=== PATIENT | female | born 1985 | race Caucasian/White ===

== ENCOUNTER → 2020-09-01 10:37 | Outpatient (BNVA) | payer OTHER, SELFPAY | PROVIDERS: PCP Internal Medicine; Referring Provider Internal Medicine; Visit Provider Internal Medicine Gastroenterology | DX: Z76.89 Persons encountering health services in other specified circumstances (principal) ==

== ENCOUNTER 2021-05-27 11:57 | Outpatient (REF) | payer OTHER, SELFPAY ==
--- NOTE | ~2021-05-27 | MM_ITS ---
EXAMINATION: MM SCREENING DIGITAL BREAST TOMOSYNTHESIS, BILATERAL CLINICAL INFORMATION: Screening. Asymptomatic. Family history premenopausal breast cancer, mother. The lifetime risk of breast cancer based on the Tyrer-Cuzick Model is 22%. COMPARISON: Mammography: 04/02/2020, 03/12/2019 TECHNIQUE: Digital breast tomosynthesis is performed in both the craniocaudal and mediolateral oblique views along with computer-aided detection (CAD). Synthesized 2D images are generated from the tomosynthesis. Additional left MLO and exaggerated right CC views are provided. FINDINGS: There are scattered areas of fibroglandular density (ACR BI-RADS breast composition Category b). There are no significant masses, abnormal calcifications, or other abnormalities. There are summation artifact upper left breast on synthesized MLO view. There are no architectural changes on tomography. The axilla and skin contours are unremarkable. MM/MM tomosynthesis screening BI IMPRESSION: No mammographic evidence of malignancy. ASSESSMENT: BI-RADS 2: Benign RECOMMENDATION: 1. Routine annual mammography screening. 2. The lifetime risk of breast cancer based on the Tyrer-Cuzick Model is 22%. Additional annual adjunct screening with breast MRI may be of benefit in women with a risk score of 20% or greater. This patient's information was entered into a reminder system with a target due date for their next mammogram.
== END 2021-05-27 11:58 | disposition home or self-care (01) ==
LOC: HO.MAMMO 11:57
PROVIDERS: PCP Internal Medicine; Visit Provider Internal Medicine
DX: Z12.31 Encounter for screening mammogram for malignant neoplasm of breast (principal)
CPT/HCPCS: 77063; 77067

== ENCOUNTER → 2021-07-20 16:14 | Outpatient (REF) | payer OTHER, SELFPAY | LOC: HO.SL 16:14 | PROVIDERS: PCP Internal Medicine; Visit Provider Internal Medicine | DX: G47.10 Hypersomnia, unspecified (principal) | CPT/HCPCS: 95806 ==

== ENCOUNTER 2021-08-04 12:00 | Outpatient (RCR) | payer OTHER, SELFPAY ==
--- NOTE | 2021-07-21 16:37 | MHC.PT.EP ---
[facility] [place] Office [place] Office [place] Office [address] Kevin Griffin [address] [phone] F: [phone] F: [phone] F: [phone] F: [phone] Physical Therapy Plan of Care Date of Evaluation: Date of Surgery: n/a Diagnosis: Pain in L shoulder Assessment: Patient is a 36 year old female presenting to PT with complaints of pain in her L shoulder. Pt reports onset of pain began March 2021 due to falling on her L elbow at work. She presents today with impairments in pain, shoulder ROM, strength, numbness and tingling, cervical ROM, and posture. Pt's current occupation is none, with baseline physical activities including reaching, lifting, ADLs. 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 Clinical presentation today is most consistent with signs and sx associated with L shoulder pain s/p fall with some numbness and tingling down her arm indicating possible cervical involvement as well and pt will benefit from skilled PT to address the following problems and impairments noted upon evaluation: pain, shoulder ROM, strength, numbness and tingling, cervical ROM, and posture. These problems limit the patient with the following functional activities: reaching, lifting, ADLs. The prescribed treatment plan of care is medically necessary. Co-morbidities of none were identified and taken into considerations of plan of care. Pt was educated on HEP, role of PT, prognosis, POC. Frequency and Duration: The patient will be seen 2x week x 4 weeks Short Term Goals: Pt will demonstrate pain <5/10 in 2 weeks for improved QOL. Pt will demonstrate proximalization of sx in 2 weeks. Pt will demonstrate improved shoulder ROM to equal B in 2 weeks. Pt will demonstrate min to no pain with cervical AROM in available range in 2 weeks. Pt will demonstrate improved postural awareness by sitting with biomechanically correct posture without cues throughout session to improve overall postural function in 2 weeks. 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 Pt will demonstrate ability to complete all reaching and lifting ADLs with min to no pain in 4 weeks to allow return to PLOF. Pt will be independent in HEP for detention management of pain and sx in 4 weeks. Treatment Plan: Modalities to reduce pain, spasms and effusion. Manual therapy to restore motion and function. Therapeutic exercise to improve strength and flexibility. Neuromuscular re-education for posture and balance. Therapeutic activities to return to functional activities of daily living. Electronically signed by: Norma Pan, PT, DPT, ATC Please sign and return to therapist. Thank you for your referral.
--- NOTE | 2021-08-09 10:25 | MHC.PT.DC ---
[facility] [place] Office [place] Office [place] Office [address] [phone] F: [phone] F: [phone] F: [phone] F: [phone] Physical Therapy Discharge Report Diagnosis: Pain in L shoulder Date of Surgery: n/a Date of Evaluation: 07/21/21 Date of Discharge: 08/09/21 Treatments to Date: 2 Cancellations to Date: 1 No Shows to Date: 3 Discharge Status: Visit Non-compliance Discharge Summary: Pt has failed to comply with [facility] attendance policy and no showed 3 appointments since eval. Electronically signed by: Norma Pan, PT, DPT, ATC Please sign and return to therapist. Thank you for your referral.
== END 2021-08-09 10:25 | disposition home or self-care (01) ==
LOC: HO.PT 12:00
PROVIDERS: PCP Internal Medicine; Visit Provider Internal Medicine
DX: M25.512 Pain in left shoulder (principal)
CPT/HCPCS: 97110; 97161

== ENCOUNTER 2021-09-04 08:24 | Outpatient (REF) | payer OTHER, SELFPAY ==
--- NOTE | ~2021-09-04 | XR_ITS ---
EXAMINATION: XR shoulder RT min 2V, XR shoulder LT min 2V CLINICAL INFORMATION: Pain in right shoulder. COMPARISON: Left shoulder dated 03/23/20. TECHNIQUE: Right shoulder 4 views. Left shoulder 4 views. FINDINGS: RIGHT SHOULDER: No bony abnormalities evident. Alignment of glenohumeral and acromioclavicular joints is normal. LEFT SHOULDER: There is mild sclerosis over the greater tuberosity with a small subchondral lucency. The appearance suggests tendinosis. No other bony abnormality. Alignment of glenohumeral and acromioclavicular joints is normal. XR/XR shoulder LT min 2V IMPRESSION: Mild changes at the greater tuberosity of the proximal left humerus consistent with tendinosis. Unremarkable right shoulder.
--- NOTE | ~2021-09-04 | XR_ITS ---
EXAMINATION: XR shoulder RT min 2V, XR shoulder LT min 2V CLINICAL INFORMATION: Pain in right shoulder. COMPARISON: Left shoulder dated 03/23/20. TECHNIQUE: Right shoulder 4 views. Left shoulder 4 views. FINDINGS: RIGHT SHOULDER: No bony abnormalities evident. Alignment of glenohumeral and acromioclavicular joints is normal. LEFT SHOULDER: There is mild sclerosis over the greater tuberosity with a small subchondral lucency. The appearance suggests tendinosis. No other bony abnormality. Alignment of glenohumeral and acromioclavicular joints is normal. XR/XR shoulder RT min 2V IMPRESSION: Mild changes at the greater tuberosity of the proximal left humerus consistent with tendinosis. Unremarkable right shoulder.
[2021-09-04 09:06] LABS: MANUAL DIFF FLAG NO
[2021-09-04 09:24] LABS: Basophils Percent Auto 0.4 % (0-2); Eosinophils Absolute Auto 0.1 X10*3/uL (0.0-0.4); Eosinophils Percent Auto 1.8 % (0-4); Hemoglobin 13.4 g/dl (12.0-16.0); Imm Gran Abs Auto 0.01 X10*3/uL (0.00-0.03); Imm Gran Pct Auto 0.2 % (0.0-0.4); Lymphocytes Absolute Auto 2.6 X10*3/uL (1.2-4.9); Lymphocytes Percent Auto 46.7 % (20-40); Mean Corpuscular HGB Conc 32.7 g/dl (31.0-35.0); Mean Corpuscular Hemoglobin 26.9 pg (27.0-33.0); Mean Corpuscular Volume 82.3 fL (80.0-98.0); Mean Platelet Volume 9.2 fL (9.4-12.3); Monocytes Absolute Auto 0.5 X10*3/uL (0.1-1.2); Monocytes Percent Auto 9.5 % (2-11); Neutrophils Absolute Auto 2.3 x10*3/uL (2.0-8.3); Neutrophils Percent Auto 41.4 % (45-73); Platelet Count 383 X10*3/uL (160-400); Red Blood Count 4.98 X10*6/uL (4.20-5.50); Red Cell Distribution Width 12.9 % (11.0-16.0); White Blood Count 5.6 X10*3/uL (4.8-10.8)
[2021-09-04 09:29] LABS: Estimated Average Glucose 105 mg/dL; Hemoglobin A1c % 5.3 %
[2021-09-04 09:56] LABS: Alanine Aminotransferase 27 U/L (0-31); Alkaline Phosphatase 92 U/L (39-117); Anion Gap 11 (12-20); Aspartate Amino Transferase 21 U/L (5-31); Bilirubin Total 0.4 mg/dL (0.0-1.0); Blood Urea Nitrogen 12 mg/dL (9-16); Calcium 9.3 mg/dL (8.4-10.2); Carbon Dioxide 23 mmol/L (22-29); Chloride 108 mmol/L (96-108); Cholesterol 140 mg/dL; Estimated Glomerular Filt Rate > 60; Glucose Random 98 mg/dL (60-115); HDL Cholesterol 37 mg/dL; LDL Cholesterol Calculated 86 mg/dl; Potassium 4.2 mmol/L (3.3-5.1); Sodium 138 mmol/L (135-145); Total Protein 7.4 g/dL (6.5-8.0); Triglycerides 87 mg/dL
[2021-09-04 10:19] LABS: Free T4 (Free Thyroxine) 0.98 ng/dL (0.71-1.85); Thyroid Stimulating Hormone 1.62 uIU/mL (0.32-4.0); Vitamin D 25-OH Total 20.8 ng/mL (>30)
[2021-09-06 03:46] LABS: Folate 12.3 ng/mL (> or = 4.0); Vitamin B12 326 pg/mL (200-900)
== END 2021-09-04 08:25 | disposition home or self-care (01) ==
LOC: HO.XRAY 08:24
PROVIDERS: PCP Internal Medicine; Visit Provider Internal Medicine
DX: M25.511 Pain in right shoulder (principal); M25.512 Pain in left shoulder; E66.9 Obesity, unspecified; E78.00 Pure hypercholesterolemia, unspecified
CPT/HCPCS: 36415; 73030; 80053; 80061; 82306; 82607; 82746; 83036; 84439; 84443; 85025

== ENCOUNTER 2021-10-06 13:32 | Outpatient (REF) | payer OTHER, SELFPAY ==
--- NOTE | 2021-10-07 13:02 | MHC.AU.AEV ---
Adult Audiological Evaluation Date of Visit: 10/06/21 Reason for Appointment: Patient reports that she has been experiencing significant difficulty hearing at home. Her partner reports that he frequently has to repeat himself when he talks to her. She also experiences intermittent tinnitus. 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: No Medical History: Medical History: Leukemia, Migraines, Hysterectomy in 2017, Appendectomy in 2009, PE tubes in childhood Otoscopy: Right Ear: Unremarkable Left Ear: Unremarkable Tympanometry: Tympanometry performed due to: To assess integrity of the middle ear system Right Ear: Normal Middle Ear System (Type A) Left Ear: Normal Middle Ear System (Type A) Acoustic Reflexes: Screening Ipsilateral Reflex Probe Right Ear: Screening Ipsilateral Reflex Present at 1000 Hz Probe Left Ear: Screening Ipsilateral Reflex Present at 1000 Hz Otoacoustic Emissions Frequency Range Used: 1.6-8 kHz Right Ear Results: Present Emissions Analysis: Present emissions suggest normal cochlear function- Rules out peripheral hearing loss greater than a mild degree Left Ear Results: Present Emissions Analysis: Present emissions suggest normal cochlear function- Rules out peripheral hearing loss greater than a mild degree Hearing Evaluation: Transducer(s) Used: Insert Earphones, Circumaural Headphones Method: Conventional Audiometry Stimuli Used: Pure Tones Description of Hearing: Unable to obtain reliable responses from patient. Responses averaged in the 90-100 dBHL range, which conflicts with objective test results and speech audiometry. Speech Recognition Threshold (SRT): Method Used: Recorded Lists Stimuli Used: Spondee Words Results: Unable to obtain reliable responses from patient. Responses averaged in the 60-70 dBHL range, which conflicts with pure tone responses and objective test results. Word Discrimination: Method: Recorded Lists Word Lists Used: W-22 Results: Unable to obtain reliable responses from patient. Interpretation of Results: Otoacoustic emissions were present and robust, which indicates normal cochlear function. Tympanometry shows normal middle ear function bilaterally. Ipsilateral acoustic reflexes were present at 1000 Hz bilaterally. Otoscopy was unremarkable, revealing clear canals and in-tact tympanic membranes. Collectively, these objective measures rule out peripheral hearing loss greater than a mild degree and indicate that the patient's hearing falls somewhere within the normal hearing range to, at most, the mild hearing loss range. Patient's responses to pure tone and speech audiometry were inconsistent and conflicting. Pure tone responses were averaging in the 90-100 dBHL range, while SRTs were in the 60-70 dBHL range. It was verified throughout the visit that the patient understood the directions. Additionally, at the beginning of the appointment, patient was able to have a conversation about the reasons for her visit at a normal conversational volume and without visual cues such as lip reading (face masks in use). This would not have been possible if her hearing was in the 90-100 dBHL (profound hearing loss) range. Recommendations: It may be beneficial for the PCP to have a discussion with the patient about today's visit. If the patient strongly feels she is having hearing difficulty, despite having normal to near-normal peripheral hearing, it is possible that other non-otological factors could be making it difficult to listen to and retain auditory information efficiently. If present, these factors should be explored with her PCP. Diagnosis: Primary Diagnosis: H93.293 Abnormal Auditory Perception Signature: Provider: Nathanael Velazquez, CCC-A
== END 2021-10-06 13:33 | disposition home or self-care (01) ==
LOC: HO.SH 13:32
PROVIDERS: Visit Provider Internal Medicine
DX: H93.293 Other abnormal auditory perceptions, bilateral (principal)
CPT/HCPCS: 92567; 92587

== ENCOUNTER 2022-05-18 14:58 | Outpatient (REF) | payer OTHER, SELFPAY ==
[2022-05-18 15:18] LABS: MANUAL DIFF FLAG NO
[2022-05-18 15:34] LABS: Basophils Absolute Auto 0.1 X10*3/uL (0.0-0.2); Eosinophils Absolute Auto 0.5 X10*3/uL (0.0-0.4); Eosinophils Percent Auto 6.9 % (0-4); Hematocrit 42.8 % (37.0-47.0); Hemoglobin 13.9 g/dl (12.0-16.0); Imm Gran Abs Auto 0.02 X10*3/uL (0.00-0.03); Imm Gran Pct Auto 0.3 % (0.0-0.4); Lymphocytes Absolute Auto 3.4 X10*3/uL (1.2-4.9); Lymphocytes Percent Auto 48.1 % (20-40); Mean Corpuscular HGB Conc 32.5 g/dl (31.0-35.0); Mean Corpuscular Hemoglobin 26.4 pg (27.0-33.0); Mean Corpuscular Volume 81.2 fL (80.0-98.0); Mean Platelet Volume 9.3 fL (9.4-12.3); Monocytes Absolute Auto 0.6 X10*3/uL (0.1-1.2); Neutrophils Absolute Auto 2.5 x10*3/uL (2.0-8.3); Neutrophils Percent Auto 35.7 % (45-73); Platelet Count 485 X10*3/uL (160-400); Red Blood Count 5.27 X10*6/uL (4.20-5.50); Red Cell Distribution Width 13.3 % (11.0-16.0)
== END 2022-05-18 14:59 | disposition home or self-care (01) ==
LOC: HO.LAB 14:58
PROVIDERS: PCP Internal Medicine; Visit Provider Internal Medicine Pulmonary Disease
DX: J45.20 Mild intermittent asthma, uncomplicated (principal); Z91.09 Other allergy status, other than to drugs and biological substances
CPT/HCPCS: 36415; 82785; 85025; 86003; 99202

== ENCOUNTER 2022-06-14 14:04 | Outpatient (REF) | payer OTHER, SELFPAY ==
--- NOTE | 2022-06-14 16:16 | PFT_ITS ---
FLOWS: FEV1 76% of predicted at 2.77 L. FVC 83% of predicted at 3.60 L. FEV1 to FVC ratio of 0.77. No bronchodilator response except in small to medium airways. LUNG VOLUMES: Total lung capacity 87% of predicted at 5.08 L. Residual volume 88% of predicted at 1.56 L. Slow vital capacity 86% of predicted at 3.51 L. Expiratory reserve volume 28% of predicted at 0.42 L. Diffusion capacity is normal. IMPRESSION: No obstructive or restrictive ventilatory defect. No bronchodilator response except in small to medium airways. Decreased expiratory reserve volume suggests extrathoracic restriction, likely secondary to abdominal obesity. Evaristo Coronel MD AP/MODL / [id number]
== END 2022-06-14 14:05 | disposition home or self-care (01) ==
LOC: HO.RESP 14:04
PROVIDERS: PCP Internal Medicine; Visit Provider Internal Medicine Pulmonary Disease
DX: J45.20 Mild intermittent asthma, uncomplicated (principal)
CPT/HCPCS: 94060; 94727; 94729

== ENCOUNTER → 2022-06-30 14:18 | Outpatient (BNVA) | payer OTHER, SELFPAY | PROVIDERS: PCP Internal Medicine; Visit Provider Internal Medicine Pulmonary Disease | DX: J45.20 Mild intermittent asthma, uncomplicated (principal); Z91.09 Other allergy status, other than to drugs and biological substances | CPT/HCPCS: 99212 ==

== ENCOUNTER 2022-07-21 11:57 | Outpatient (REF) | payer OTHER, SELFPAY | END 2022-07-21 11:58 | disposition home or self-care (01) | LOC: HO.MDS 11:57 | PROVIDERS: PCP Internal Medicine; Visit Provider Internal Medicine Pulmonary Disease | DX: J45.50 Severe persistent asthma, uncomplicated (principal) | CPT/HCPCS: 96372; J2357 ==

== ENCOUNTER 2022-08-04 08:15 | Outpatient (REF) | payer OTHER, SELFPAY | END 2022-08-04 08:16 | disposition home or self-care (01) | LOC: HO.MDS 08:15 | PROVIDERS: PCP Internal Medicine; Visit Provider Internal Medicine Pulmonary Disease | DX: J45.50 Severe persistent asthma, uncomplicated (principal) | CPT/HCPCS: 96372; J2357 ==

== ENCOUNTER 2022-08-18 13:27 | Outpatient (REF) | payer OTHER, SELFPAY | END 2022-08-18 13:28 | disposition home or self-care (01) | LOC: HO.MDS 13:27 | PROVIDERS: Visit Provider Internal Medicine Pulmonary Disease | DX: J45.50 Severe persistent asthma, uncomplicated (principal) | CPT/HCPCS: 96372; J2357 ==

== ENCOUNTER 2022-09-01 12:52 | Outpatient (REF) | payer OTHER, SELFPAY | END 2022-09-01 12:53 | disposition home or self-care (01) | LOC: HO.MDS 12:52 | PROVIDERS: Visit Provider Internal Medicine Pulmonary Disease | DX: J45.50 Severe persistent asthma, uncomplicated (principal) | CPT/HCPCS: 96372; J2357 ==

== ENCOUNTER 2022-09-13 09:27 | Outpatient (REF) | payer OTHER, SELFPAY ==
[2022-09-13 09:40] LABS: MANUAL DIFF FLAG NO
[2022-09-13 10:22] LABS: Basophils Absolute Auto 0.1 X10*3/uL (0.0-0.2); Basophils Percent Auto 0.9 % (0-2); Eosinophils Absolute Auto 0.2 X10*3/uL (0.0-0.4); Eosinophils Percent Auto 4.3 % (0-4); Hematocrit 45.1 % (37.0-47.0); Hemoglobin 14.3 g/dl (12.0-16.0); Lymphocytes Absolute Auto 1.8 X10*3/uL (1.2-4.9); Lymphocytes Percent Auto 33.1 % (20-40); Mean Corpuscular HGB Conc 31.7 g/dl (31.0-35.0); Mean Corpuscular Hemoglobin 26.7 pg (27.0-33.0); Mean Corpuscular Volume 84.1 fL (80.0-98.0); Mean Platelet Volume 9.4 fL (9.4-12.3); Monocytes Absolute Auto 0.5 X10*3/uL (0.1-1.2); Monocytes Percent Auto 9.9 % (2-11); Neutrophils Absolute Auto 2.8 x10*3/uL (2.0-8.3); Neutrophils Percent Auto 51.8 % (45-73); Platelet Count 485 X10*3/uL (160-400); Red Blood Count 5.36 X10*6/uL (4.20-5.50); White Blood Count 5.4 X10*3/uL (4.8-10.8)
[2022-09-13 10:24] LABS: Appearance Urine Clear; Color Urine Yellow; Glucose Urine UA Negative (Negative); Leukocyte Esterase Urine Negative (Negative); Nitrite Urine Negative (Negative); Urine Blood Negative (Negative); Urine Ketones Negative (Negative); Urine Protein Negative (Neg-Trace)
[2022-09-13 10:26] LABS: Bacteria Urine None Seen (None Seen); Hyaline Casts Urine 0-2 /LPF (0-2); RBC Urine 0-2 /HPF (0-2); Squamous Epithelial Cell Urine 0-2 /HPF (0-2); WBC Urine 0-5 /HPF (0-5)
[2022-09-13 11:32] LABS: Alanine Aminotransferase 31 U/L (0-31); Albumin Level 4.2 g/dL (3.5-5.0); Alkaline Phosphatase 95 U/L (39-117); Anion Gap 12 (12-20); Aspartate Amino Transferase 21 U/L (5-31); Bilirubin Total 0.3 mg/dL (0.0-1.0); Blood Urea Nitrogen 12 mg/dL (9-16); Calcium 9.7 mg/dL (8.4-10.2); Carbon Dioxide 25 mmol/L (22-29); Chloride 107 mmol/L (96-108); Cholesterol 171 mg/dL; Estimated Glomerular Filt Rate > 60; Free T4 (Free Thyroxine) 0.95 ng/dL (0.71-1.85); Glucose Random 97 mg/dL (60-115); HDL Cholesterol 45 mg/dL; LDL Cholesterol Calculated 98 mg/dl; Potassium 4.6 mmol/L (3.3-5.1); Sodium 139 mmol/L (135-145); Thyroid Stimulating Hormone 1.29 uIU/mL (0.32-4.0); Total Protein 7.3 g/dL (6.5-8.0); Triglycerides 144 mg/dL; Vitamin D 25-OH Total 13.4 ng/mL (>30)
[2022-09-13 11:42] LABS: Folate 7.3 ng/mL (> or = 4.0); Vitamin B12 283 pg/mL (200-900)
[2022-09-14 06:37] LABS: Syphilis Screen Nonreactive (Nonreactive)
[2022-09-14 11:57] LABS: HBS Num1 212.96 mIU/mL (0-7.99); HBc Num1 0.11 S/CO (0.00-0.79); HBsAGNum1 0.28 S/CO (0.00-0.99); HIV AB/AG Nonreactive (Nonreactive); HIV Num 1 0.06 S/CO (0.00-0.99); Hepatitis B Core Antibody Nonreactive (Nonreactive); Hepatitis B Surface Antigen Negative (Negative); ~HepC Num1 0.13 S/CO (0.00-0.79); ~Hepatitis B Surface Antibody REACTIVE (Nonreactive); ~Hepatitis C Antibody Nonreactive (Nonreactive)
[2022-09-15 09:49] LABS: Rubeola IgG (Measles) >300.00 AU/mL
[2022-09-15 10:19] LABS: Rubella IgG Antibody 2.82 Index
[2022-09-15 19:09] LABS: Immunoglobulin E 1102 kU/L (<OR=114)
== END 2022-09-13 09:28 | disposition home or self-care (01) ==
LOC: HO.LAB 09:27
PROVIDERS: Internal Medicine Pulmonary Disease; PCP Internal Medicine; Visit Provider Internal Medicine
DX: Z00.00 Encounter for general adult medical examination without abnormal findings (principal); Z11.4 Encounter for screening for human immunodeficiency virus [HIV]; J45.20 Mild intermittent asthma, uncomplicated; D75.839 Thrombocytosis, unspecified; E78.00 Pure hypercholesterolemia, unspecified; R79.89 Other specified abnormal findings of blood chemistry; Z20.2 Contact with and (suspected) exposure to infections with a predominantly sexual mode of transmission
CPT/HCPCS: 36415; 80053; 80061; 81001; 82306; 82607; 82746; 82785; 84439; 84443; 85025; 86704; 86706; 86735; 86762; 86765; 86780; 86787; 86803; 87340; 87389

== ENCOUNTER 2022-09-14 08:24 | Outpatient (REF) | payer OTHER, SELFPAY | END 2022-09-14 08:25 | disposition home or self-care (01) | LOC: HO.MDS 08:24 | PROVIDERS: Visit Provider Internal Medicine Pulmonary Disease | DX: J45.50 Severe persistent asthma, uncomplicated (principal) | CPT/HCPCS: 96372; J2357 ==

== ENCOUNTER 2022-09-29 08:02 | Outpatient (REF) | payer OTHER, SELFPAY | END 2022-09-29 08:03 | disposition home or self-care (01) | LOC: HO.MDS 08:02 | PROVIDERS: Visit Provider Internal Medicine Pulmonary Disease | DX: J45.50 Severe persistent asthma, uncomplicated (principal) | CPT/HCPCS: 96372; J2357 ==

== ENCOUNTER 2022-09-29 08:47 | Outpatient (REF) | payer OTHER, SELFPAY | END 2022-09-29 08:48 | disposition home or self-care (01) | LOC: HO.XRAY 08:47 | PROVIDERS: PCP Internal Medicine; Visit Provider Internal Medicine | DX: Z13.89 Encounter for screening for other disorder (principal) ==

== ENCOUNTER 2022-10-13 10:25 | Outpatient (REF) | payer OTHER, SELFPAY | END 2022-10-13 10:26 | disposition home or self-care (01) | LOC: HO.MDS 10:25 | PROVIDERS: Visit Provider Internal Medicine Pulmonary Disease | DX: J45.50 Severe persistent asthma, uncomplicated (principal) | CPT/HCPCS: 96372; J2357 ==

== ENCOUNTER 2022-10-27 13:24 | Outpatient (REF) | payer OTHER, SELFPAY | END 2022-10-27 13:25 | disposition home or self-care (01) | LOC: HO.MDS 13:24 | PROVIDERS: Visit Provider Internal Medicine Pulmonary Disease | DX: J45.50 Severe persistent asthma, uncomplicated (principal) | CPT/HCPCS: 96372; J2357 ==

== ENCOUNTER 2022-11-10 08:22 | Outpatient (REF) | payer OTHER, SELFPAY ==
--- NOTE | ~2022-11-10 | FL_ITS ---
EXAMINATION: XR GI SERIES CLINICAL INFORMATION: Acid reflux. Dysphagia. COMPARISON: Previous upper GI April 2019. TECHNIQUE: Upper GI was performed using thin and thick barium and effervescent granules. FINDINGS: Esophageal motility is normal. There is mild gastroesophageal reflux. There is slight mucosal irregularity at the distal esophagus, questionable for esophagitis. No mass or stricture. The stomach and duodenum are normal-appearing. No fold thickening, mass, ulcer or stricture is seen. FLUOROSCOPY TIME: 0.6 minutes IMAGES: 25 saved fluoroscopic images. DOSE AREA PRODUCT: 6.6 Gy-cm2. FL/FL upper GI series IMPRESSION: Mild gastroesophageal reflux. Question slight mucosal irregularity at the distal thoracic esophagus/esophagitis.
== END 2022-11-10 08:23 | disposition home or self-care (01) ==
LOC: HO.XRAY 08:22
PROVIDERS: PCP Internal Medicine; Visit Provider Internal Medicine
DX: R13.10 Dysphagia, unspecified (principal)
CPT/HCPCS: 74240

== ENCOUNTER 2022-11-10 09:26 | Outpatient (REF) | payer OTHER, SELFPAY | END 2022-11-10 09:27 | disposition home or self-care (01) | LOC: HO.MDS 09:26 | PROVIDERS: Visit Provider Internal Medicine Pulmonary Disease | DX: J45.50 Severe persistent asthma, uncomplicated (principal) | CPT/HCPCS: 96372; J2357 ==

== ENCOUNTER 2022-11-24 11:44 | Outpatient (REF) | payer OTHER, SELFPAY | END 2022-11-24 11:45 | disposition home or self-care (01) | LOC: HO.MDS 11:44 | PROVIDERS: Visit Provider Internal Medicine Pulmonary Disease | DX: Z53.09 Procedure and treatment not carried out because of other contraindication (principal); J45.50 Severe persistent asthma, uncomplicated | CPT/HCPCS: 96372; J2357 ==

== ENCOUNTER 2022-12-07 13:00 | Outpatient (REF) | payer OTHER, SELFPAY | END 2022-12-07 13:01 | disposition home or self-care (01) | LOC: HO.MDS 13:00 | PROVIDERS: Visit Provider Internal Medicine Pulmonary Disease | DX: J45.50 Severe persistent asthma, uncomplicated (principal) | CPT/HCPCS: 96372; J2357 ==

== ENCOUNTER 2022-12-21 13:26 | Outpatient (REF) | payer OTHER, SELFPAY | END 2022-12-21 13:27 | disposition home or self-care (01) | LOC: HO.MDS 13:26 | PROVIDERS: Visit Provider Internal Medicine Pulmonary Disease | DX: J45.50 Severe persistent asthma, uncomplicated (principal) | CPT/HCPCS: 96372; J2357 ==

== ENCOUNTER 2023-01-04 07:34 | Outpatient (REF) | payer OTHER, SELFPAY | END 2023-01-04 07:35 | disposition home or self-care (01) | LOC: HO.MDS 07:34 | PROVIDERS: Visit Provider Internal Medicine Pulmonary Disease | DX: J45.50 Severe persistent asthma, uncomplicated (principal) | CPT/HCPCS: 96372; J2357 ==

== ENCOUNTER 2023-01-17 07:48 | Outpatient (REF) | payer OTHER, SELFPAY | END 2023-01-17 07:49 | disposition home or self-care (01) | LOC: HO.MDS 07:48 | PROVIDERS: Visit Provider Internal Medicine Pulmonary Disease | DX: J45.50 Severe persistent asthma, uncomplicated (principal) | CPT/HCPCS: 96372; J2357 ==

== ENCOUNTER 2023-01-31 08:16 | Outpatient (REF) | payer OTHER, SELFPAY | END 2023-01-31 08:17 | disposition home or self-care (01) | LOC: HO.MDS 08:16 | PROVIDERS: Visit Provider Internal Medicine Pulmonary Disease | DX: J45.50 Severe persistent asthma, uncomplicated (principal) | CPT/HCPCS: 96372; J2357 ==

== ENCOUNTER 2023-02-15 08:39 | Outpatient (REF) | payer OTHER, SELFPAY | END 2023-02-15 08:40 | disposition home or self-care (01) | LOC: HO.MDS 08:39 | PROVIDERS: Visit Provider Internal Medicine Pulmonary Disease | DX: J45.50 Severe persistent asthma, uncomplicated (principal) | CPT/HCPCS: 96372; J2357 ==

== ENCOUNTER 2023-03-07 08:08 | Outpatient (REF) | payer OTHER, SELFPAY | END 2023-03-07 08:09 | disposition home or self-care (01) | LOC: HO.MDS 08:08 | PROVIDERS: Visit Provider Internal Medicine Pulmonary Disease | DX: J45.50 Severe persistent asthma, uncomplicated (principal) | CPT/HCPCS: 96372; J2357 ==

== ENCOUNTER 2023-03-27 14:01 | Outpatient (REF) | payer OTHER, SELFPAY | END 2023-03-27 14:02 | disposition home or self-care (01) | LOC: HO.MDS 14:01 | PROVIDERS: Visit Provider Internal Medicine Pulmonary Disease | DX: J45.50 Severe persistent asthma, uncomplicated (principal) | CPT/HCPCS: 96372; J2357 ==

== ENCOUNTER 2023-03-28 15:45 | Outpatient (AMB) | payer OTHER, SELFPAY ==
--- NOTE | 2023-03-28 15:48 | MHC.OFFVIS ---
Intake Vital Signs 03/28/23 15:49 Height 5 ft 10 in Weight 273 lb 5.971 oz BMI 39.2 BP 114/96 H Pulse 82 Pulse Oximetry (%) 98 Intake Visit Reasons: asthma Intake Note: pt is here to follow up after starting xolair injections Allergies mushroom Allergy (Severe, Verified 03/28/23 15:48) ANAPHYLAXIS ketorolac [From TORADOL] Allergy (Intermediate, Verified 03/28/23 15:48) HALLUCINATIONS nitrofurantoin [From MACROBID] Allergy (Intermediate, Verified 03/28/23 15:48) SWELLING, ITCHY tramadol Allergy (Unknown, Verified 03/28/23 15:48) something lamotrigine [Lamictal] Adverse Reaction (Unknown, Verified 03/28/23 15:48) aggression lamictal Allergy (Unknown, Uncoded 02/10/23 14:30) something mushrooms Allergy (Unknown, Uncoded 02/10/23 14:30) anaphylaxis HPI asthma HPI Details 37-year-old lady, nonsmoker, followed for severe persistent asthma and environmental allergies. Symptoms previously controlled on Xolair, now with breakthrough symptoms. Continues on Symbicort, Singulair, and albuterol MDI/nebs. Denies recent acute exacerbations. [facility] Medical History (Updated 03/28/23 @ 16:07 by Evaristo Coronel MD) Asthma Back pain Bilateral shoulder pain Bipolar disorder Chest tightness Difficulty breathing Eczema Exacerbation of asthma GERD (gastroesophageal reflux disease) Hx LEEP (loop electrosurgical excision procedure), cervix, Hypersomnia Knee osteoarthritis Migraine Nasal congestion Obesity (BMI 30-39.9) Peripheral neuropathy Shortness of breath Shoulder pain, left Sinus congestion Vitamin D deficiency Surgical History H/O tubal ligation History of appendectomy History of hysterectomy Hx of endoscopy Family History (Updated 02/10/23 @ 14:31 by Edna Pennington CMA) Father Heart attack Mother Heart attack Lupus Breast cancer Maternal Grandmother Uterine cancer Social History Housing: House Alcohol intake: former Patient Tobacco Use Status: Never used Tobacco e-Cigarette/Vaping Use: Never Used Second Hand Smoke Exposure: Yes Current occupational status: employed Cognitive needs: No Hearing needs: No Vision needs: No Review of Systems Const Denies daytime sleepiness, Denies excessive sweating, Denies fatigue, Denies fever(s), Denies lethargy, Denies malaise, Denies night sweats, Denies snoring and Denies weight loss Eyes Denies blurry vision and Denies itchy eyes ENT Denies nasal congestion, Denies post nasal drip, Denies sinus pain, Denies sinus pressure and Denies other ( Thrush) Card Denies chest pain, Denies pedal edema, Denies dyspnea, Denies orthopnea and Denies paroxysmal nocturnal dyspnea Resp Denies cough, Denies hemoptysis, Denies excessive phlegm production, Denies dyspnea, Denies snoring and Reports wheezing GI Denies abdominal pain and Denies heartburn Musc Denies myalgias, Denies arthralgias and Denies joint swelling Skin/Breast Denies rash Neuro Denies memory loss and Denies seizure-like activity Psych Denies abnormal sleep pattern, Denies anxiety and Denies memory loss Endo Denies excessive sweating, Denies fatigue and Denies heat intolerance Silas/Lymph Denies easy bruising Aller/Immun Denies itchy eyes, Denies seasonal rhinorrhea and Reports wheezing Physical Exam Vital Signs: Last Vital Signs Pulse 82 03/28/23 15:49 BP 114/96 H 03/28/23 15:49 Pulse Ox 98 03/28/23 15:49 BMI result Body Mass Index 39.2 Const General: no acute distress and alert Nutritional Appearance: obese Orientation/consciousness: Other orientation findings ( oriented) HEENT Head: Yes atraumatic Eyes General: appearance normal, both eyes and all related structures Sclerae: sclerae normal EOM: EOMs intact bilaterally Neck Neck: Yes supple Lymphatic: no lymphadenopathy noted Resp Effort & Inspection: normal respiratory effort and no use of accessory muscles Auscultation: clear to auscultation bilaterally Cardio Rate: regular rate Rhythm: regular rhythm Heart sounds: no gallops, no murmurs and no rubs Skin General skin exam: other ( warm) Extrem General: No clubbing, No cyanosis and No edema Assessment & Plan Assessment & Plan (1) Asthma: Code(s): J45.909 - Unspecified asthma, uncomplicated Qualifiers: Asthma severity: mild Asthma persistence: intermittent Asthma complication type: uncomplicated Qualified Code(s): J45.20 - Mild intermittent asthma, uncomplicated Plan: Patient's control on Xolair initially has improved, but now she started to have recurred symptoms again. Will consider switching to Dupixent. Continue baseline regimen of Symbicort, albuterol MDI, and nebs. (2) Environmental allergies: Code(s): Z91.09 - Other allergy status, other than to drugs and biological substances Plan: Expect to improve with which in from the late Dupixent. Continue on Zyrtec and montelukast. Coding Level of Care Code Est Pt Level 4 (74009) Diagnoses Asthma J45.20 Asthma severity: mild Asthma persistence: intermittent Asthma complication type: uncomplicated Environmental allergies Z91.09
[2023-03-28 15:49] VITALS: BP 114/96; PULSE 82; O2SAT 98; BMI 39.2
== END 2023-03-28 16:01 | disposition home or self-care (01) ==
PROVIDERS: PCP Internal Medicine; Visit Provider Internal Medicine Pulmonary Disease
DX: J45.20 Mild intermittent asthma, uncomplicated (principal); Z91.09 Other allergy status, other than to drugs and biological substances
CPT/HCPCS: 99214

== ENCOUNTER → 2023-03-28 15:45 | Outpatient (BNVA) | payer OTHER, SELFPAY | PROVIDERS: PCP Internal Medicine; Visit Provider Internal Medicine Pulmonary Disease | DX: J45.20 Mild intermittent asthma, uncomplicated (principal); Z91.09 Other allergy status, other than to drugs and biological substances | CPT/HCPCS: 99212 ==

== ENCOUNTER 2023-04-10 13:02 | Outpatient (REF) | payer OTHER, SELFPAY | END 2023-04-10 13:03 | disposition home or self-care (01) | LOC: HO.MDS 13:02 | PROVIDERS: Visit Provider Internal Medicine Pulmonary Disease | DX: J45.50 Severe persistent asthma, uncomplicated (principal) | CPT/HCPCS: 96372; J2357 ==

== ENCOUNTER 2023-05-15 13:05 | Outpatient (AMB) | payer OTHER, SELFPAY ==
--- NOTE | 2023-05-15 13:12 | A.OFFVIS_ITS ---
Intake Vital Signs 05/15/23 13:13 Weight 111 kg BP 120/78 Blood Pressure Location Lt brachial Position Sitting Pulse 90 Pulse Source Pulse Oximeter Pulse Oximetry (%) 99 Oxygen Delivery Method Room Air Intake Visit Reasons: Dupixent Teaching Allergies mushroom Allergy (Severe, Verified 05/15/23 13:15) ANAPHYLAXIS ketorolac [From TORADOL] Allergy (Intermediate, Verified 05/15/23 13:15) HALLUCINATIONS nitrofurantoin [From MACROBID] Allergy (Intermediate, Verified 05/15/23 13:15) SWELLING, ITCHY tramadol Allergy (Unknown, Verified 05/15/23 13:15) something lamotrigine [Lamictal] Adverse Reaction (Unknown, Verified 05/15/23 13:15) aggression lamictal Allergy (Unknown, Uncoded 05/15/23 13:15) something mushrooms Allergy (Unknown, Uncoded 05/15/23 13:15) anaphylaxis Medication List - Last Reconciled 05/15/23 by Clari Kuo LPN albuterol sulfate 0.63 mg (3 mL) inhalation QID PRN 30 days albuterol sulfate 90 mcg/actuation (Ventolin HFA) 2 puffs inhalation Q6H PRN budesonide-formoterol 160-4.5 mcg/actuation (Symbicort) 2 puffs PO BID cetirizine (Zyrtec) 10 mg PO DAILY PRN 90 days cholecalciferol (vitamin D3) (Vitamin D3) 50 mcg PO DAILY dupilumab (Dupixent) 300 mg (2 mL) subcut Q2W 28 days lidocaine 5% 1 appl topical BID PRN montelukast 10 mg PO DAILY 90 days omalizumab (Xolair) 225 mg subcut Q2W 28 days pantoprazole 40 mg PO DAILY tizanidine 4 mg PO BID PRN triamcinolone acetonide 0.5% 1 appl topical BID 14 days HPI Dupixent Teaching HPI Details Tammie is here for a Dupixent teach with Adriel patton) who was e ducated on hand washing, injection preparation, administration, and disposal. Adriel and Tammie were able to return demonstrate proper technique for hand washing, injection preparation, administration and disposal of needle and states they have no questions at this time. Medication Dupixent 300mg/2mL pre-filled pen (patient?s own meds) Loading dose of 600mg given by Adriel in 2 SQ injections; injection #1 L upper arm ;? injection #2 R upper arm? Lot# [id number] expires 02/15/2025. Patient aware her next injection is in 15 days. Nurse visit only.? PFSH Medical History (Updated 05/15/23 @ 13:24 by Clari Kuo LPN) Asthma Back pain Bilateral shoulder pain Bipolar disorder Chest tightness Difficulty breathing Eczema Exacerbation of asthma GERD (gastroesophageal reflux disease) Hx LEEP (loop electrosurgical excision procedure), cervix, Hypersomnia Knee osteoarthritis Migraine Nasal congestion Obesity (BMI 30-39.9) Peripheral neuropathy Shortness of breath Shoulder pain, left Sinus congestion Vitamin D deficiency Surgical History H/O tubal ligation History of appendectomy History of hysterectomy Hx of endoscopy Family History (Updated 02/10/23 @ 14:31 by Edna Pennington CMA) Father Heart attack Mother Heart attack Lupus Breast cancer Maternal Grandmother Uterine cancer Social History Housing: House Alcohol intake: former Patient Tobacco Use Status: Never used Tobacco e-Cigarette/Vaping Use: Never Used Second Hand Smoke Exposure: Yes Current occupational status: employed Cognitive needs: No Hearing needs: No Vision needs: No Assessment & Plan Assessment & Plan (1) Asthma: Code(s): J45.909 - Unspecified asthma, uncomplicated Coding Level of Care Code Established Pt Est Pt Level 1 (99784) Patient Type Established Diagnoses Asthma J45.909 Comment NURSE VISIT ONLY
[2023-05-15 13:13] VITALS: BP 120/78; PULSE 90; O2SAT 99
== END 2023-05-15 13:39 | disposition home or self-care (01) ==
PROVIDERS: PCP Internal Medicine; Visit Provider Internal Medicine Pulmonary Disease
DX: J45.909 Unspecified asthma, uncomplicated (principal)

== ENCOUNTER → 2023-05-15 13:05 | Outpatient (BNVA) | payer OTHER, SELFPAY | PROVIDERS: PCP Internal Medicine; Visit Provider Internal Medicine Pulmonary Disease | DX: Z71.89 Other specified counseling (principal); J45.909 Unspecified asthma, uncomplicated | CPT/HCPCS: 99211 ==

== ENCOUNTER 2023-07-28 07:25 | Outpatient (AMB) | payer OTHER, SELFPAY ==
--- NOTE | 2023-07-28 07:29 | A.OFFPC_ITS ---
Vital Signs 07/28/23 07:30 Height 5 ft 10 in Weight 217 lb BMI 31.1 BP 102/68 Blood Pressure Location Lt brachial Position Sitting Pulse 70 Pulse Source Pulse Oximeter Pulse Oximetry (%) 98 Oxygen Delivery Method Room Air Intake Visit Reasons: Annual PE Allergies mushroom Allergy (Severe, Verified 07/28/23 07:41) ANAPHYLAXIS ketorolac [From TORADOL] Allergy (Intermediate, Verified 07/28/23 07:41) HALLUCINATIONS nitrofurantoin [From MACROBID] Allergy (Intermediate, Verified 07/28/23 07:41) SWELLING, ITCHY tramadol Allergy (Unknown, Verified 07/28/23 07:41) something lamotrigine [Lamictal] Adverse Reaction (Unknown, Verified 07/28/23 07:41) aggression lamictal Allergy (Unknown, Uncoded 07/28/23 07:30) something mushrooms Allergy (Unknown, Uncoded 07/28/23 07:30) anaphylaxis Medication List - Last Reconciled 07/28/23 by SONG Baker albuterol sulfate 0.63 mg (3 mL) inhalation QID PRN 30 days albuterol sulfate 90 mcg/actuation (Ventolin HFA) 2 puffs inhalation Q6H PRN budesonide-formoterol 160-4.5 mcg/actuation (Symbicort) 2 puffs PO BID cetirizine (Zyrtec) 10 mg PO DAILY PRN 90 days cholecalciferol (vitamin D3) (Vitamin D3) 50 mcg PO DAILY dupilumab (Dupixent) 300 mg (2 mL) subcut Q2W 28 days lidocaine 5% 1 appl topical BID PRN montelukast 10 mg PO DAILY 90 days omalizumab (Xolair) 225 mg subcut Q2W 28 days pantoprazole 40 mg PO DAILY tizanidine 4 mg PO BID PRN triamcinolone acetonide 0.5% 1 appl topical BID 14 days Tobacco use date assessed: 05/26/23 Dental Screening Dental Screen Date: 07/28/23 Did you have a dental visit in the last 12 months?: Yes Did you have a dental problem in the last 6 months where you did not have access to dental care?: No Was dental information given to patient?: Patient has dentist HPI HPI Comments History of Present Illness Details 38-year-old female past medical history significant for asthma, bipolar, GERD, obesity s/p laparoscopic sleeve gastrectomy March 2023. Patient of last seen in May, patient presents today for physical exam. Review of the notes patient currently following with pulmonology on Dupixent injections. Doesn't feel like its improving, patient has upcoming follow-up with pulmonology on August 05 to discuss medication change. Patient reports was recently on antibiotic for tooth infection however now she has developed vaginal itching. Denies discharge, dysuria, hesitancy and urgency. Likely yeast infection, will send Diflucan to patient's pharmacy. pap smear: complete hysterectomy; age 28. eye exam: UTD Flu shot given in office today, Tdap up-to-date. Patient currently follows with [facility] for psychiatrist and counselor stable on current medications. [facility] Medical History Difficulty breathing Shortness of breath Chest tightness Exacerbation of asthma Eczema Bilateral shoulder pain Sinus congestion Shoulder pain, left Nasal congestion Hypersomnia Back pain Hx LEEP (loop electrosurgical excision procedure), cervix, Peripheral neuropathy Obesity (BMI 30-39.9) Knee osteoarthritis Vitamin D deficiency Migraine GERD (gastroesophageal reflux disease) Bipolar disorder Asthma Surgical History H/O tubal ligation History of appendectomy History of hysterectomy Hx of endoscopy Family History Father Heart attack Mother Heart attack Lupus Breast cancer Maternal Grandmother Uterine cancer Social History Housing: House Alcohol intake: former Patient Tobacco Use Status: Never used Tobacco e-Cigarette/Vaping Use: Never Used Second Hand Smoke Exposure: Yes Current occupational status: employed Cognitive needs: No Hearing needs: No Vision needs: No Questionnaire PHQ-9 Over the last 2 weeks, how often have you been bothered by any of the following problems? 1. Little interest or pleasure in doing things: not at all 2. Feeling down, depressed, or hopeless: not at all 3. Trouble falling or staying asleep, or sleeping too much: not at all 4. Feeling tired or having little energy: several days 5. Poor appetite or overeating: not at all 6. Feeling bad about yourself - or that you are a failure or have let yourself or your family down: not at all 7. Trouble concentrating on things, such as reading the newspaper or watching television: not at all 8. Moving or speaking so slowly that other people could have noticed. Or the opposite - being so fidgety or restless that you have been moving around a lot more than usual: not at all 9. Thoughts that you would be better off or of hurting yourself in some w ay: not at all Total score: 1 10017 - PHQ-9 Billing: Yes Source: Developed by Drs. Esa Castillo, Stan Sams and colleagues, with an educational zak from [employer]. Thrive Questionnaire Date Thrive assessed: 02/10/23 AUDIT C Alcohol Use Questionnaire (AUDIT-C) 1. How often do you have a drink containing alcohol?: Monthly or less 2. How many drinks containing alcohol do you have on a typical day when you are drinking?: 1 or 2 3. How often do you have six or more drinks on one occasion?: Never Total Score: 1 ANUPAM-7 AMB Questionnaire ANUPAM-7 Date ANUPAM - 7 assessed: 02/10/23 Source: Developed by Drs. Esa Castillo, Stan Sams and colleagues, with an educational zak from [employer]. Review of Systems Const Denies chills, Denies fatigue, Denies fever(s) and Denies poor appetite Eyes Denies no additional complaints ENT Reports Normal hearing present Card Denies chest pain, Denies syncope, Denies rapid heart rate and Denies dyspnea Resp Denies cough and Denies dyspnea GI Denies change in stool character, Denies constipation, Denies diarrhea, Denies nausea and Denies vomiting Denies urinary frequency, Denies dysuria, Denies urinary urgency and Reports vaginal pruritus Neuro Reports Normal hearing present, Denies confusion and Denies syncope Psych Denies confusion Endo Denies fatigue Physical exam (Primary Care) Vital Signs: Last Vital Signs Pulse 70 07/28/23 07:30 BP 102/68 07/28/23 07:30 Pulse Ox 98 07/28/23 07:30 Oxygen Delivery Method Room Air 07/28/23 07:30 BMI result Body Mass Index 31.1 Tobacco/Smoking Status: Tobacco use Status Tobacco use date assessed 05/26/23 07/28/23 07:36 Patient Tobacco Use Status Never used Tobacco 07/28/23 07:36 e-Cigarette/Vaping Use Never Used 07/28/23 07:36 PHQ-9: PHQ-9 Score PHQ-9: Total score 1 07/28/23 07:57 Thrive Assessment: Date of Thrive Assessment Date Thrive assessed 02/10/23 07/28/23 07:36 Const General: cooperative and healthy appearing; No acute distress or confusion Orientation/consciousness: patient oriented x3 and No confusion HENMT Head: Yes normocephalic and Yes atraumatic Ears: external ears normal and TM's normal bilaterally General nose exam: Normal external nose present and Normal nasal mucous membranes and turbinates present Face and sinus: Yes normal facial exam and Yes sinuses nontender Mouth: moist mucous membranes Throat: Yes tonsils normal Eyes Conjunctivae: conjunctivae normal Sclerae: sclerae normal Pupils: Equal, round and reactive pupils present and Pupils normal by confrontation EOM: EOMs intact bilaterally Direct Ophthalmoscopy: normal light reflex Neck Neck: Yes no lymphadenopathy and Yes supple Thyroid: Thyroid normal Chest Chest palpation & inspection: normal inspection of the chest Resp Effort & Inspection: normal respiratory effort Auscultation: clear to auscultation bilaterally, no crackles, no rhonchi and no wheezes Cardio Rate: regular rate Rhythm: regular rhythm Peripheral pulses: radial pulses present and dorsalis pedis present GI Inspection: Yes normal to inspection Palpation (GI): Soft to palpation, nontender and No hepatosplenomegaly present Auscultation: normoactive bowel sounds Skin General skin exam: no rashes or lesions noted Neuro General: patient oriented x3 and No confusion Cranial nerves: Yes CN's II-XII intact bilaterally, Yes Equal, round and reactive pupils present and Yes Normal hearing present Cognition (Neuro): normal cognition Gait exam (Neuro): Normal gait present Motor exam (neuro): 5/5 motor strength present throughout Deep tendon reflexes (DTR's): Right brachioradialis reflex intensity grade: 2+, Left brachioradialis reflex intensity grade: 2+, Right patellar reflex intensity grade: 2+ and Left patellar reflex intensity grade: 2+ Extrem General: No edema Office Procedures Flu Questionnaire Does the patient have a severe egg allergy?: No Does the patient have severe life threatening allergies?: No Does the patient have a fever or illness today?: No Has the patient ever had Guillain-[place] Syndrome?: No Has the patient ever had any past reaction to a flu shot?: No Immunizations flu vacc [id number] 6mos up(PF) 60 mcg(15 mcgx4)/0.5 mL IM syringe Performing Provider: SONG Baker [facility] Administered by: Edna Pennington CMA on 07/28/23 07:54 Dose Route Admin Location Dispensed Lot Number Expiration Date NDC Dishroom Attendant 0.5 mL IM Right Deltoid 0.5 mL [id number] 03/17/24 09660-094-25 [employer] VIS Given Date VIS Provided VIS Publication Date 07/28/23 Single Vaccine 21 Eligibility Eligibility Date Funding Source Not [facility] Eligible 07/28/23 Private Assessment and Plan Assessment & Plan (1) Annual physical exam: Code(s): Z00.00 - Encounter for general adult medical examination without abnormal findings Plan: Fasting labs ordered. Follow-up in 1 year. (2) Asthma: Code(s): J45.909 - Unspecified asthma, uncomplicated Plan: Continue to follow-up pulmonology. (3) Bipolar disorder: Comment: [facility] counselling Code(s): F31.9 - Bipolar disorder, unspecified Plan: Continue to follow with [facility] psychiatry and counseling. Continue on current medications. Plan Keep scheduled follow-up with PCP or follow-up sooner if needed. Orders: Orders Comprehensive [place]. Panel Fast Today E66.9 - Obesity, unspecified Vitamin B12 and Folate Today Z98.84 - Bariatric surgery status Vitamin B1 Today Z98.84 - Bariatric surgery status Vitamin D 25-OH Total Today Z13.21 - Encounter for screening for nutritional disorder Influenza [id number] Immunization Today Z23 - Encounter for immunization Complete Blood Count Auto Diff Today Z13.0 - Encounter for screening for diseases of the blood and blood-forming organs and certain disorders involving the immune mechanism Lipid Panel Today E66.9 - Obesity, unspecified TSH reflex Free T4 Today Z13.29 - Encounter for screening for other suspected endocrine disorder Medications: New fluconazole 150 mg PO Q3D 2 tabs 0RF 2 doses B37.31 - Acute candidiasis of vulva and vagina, Z98.84 - Bariatric surgery status Coding Level of Care Code Est Pt Prev Care 18-39y(58833) Diagnoses Annual physical exam Z00.00 Asthma J45.909 Bipolar disorder F31.9
[2023-07-28 07:30] VITALS: BP 102/68; PULSE 70; O2SAT 98; BMI 31.1
== END 2023-07-28 07:58 | disposition home or self-care (01) ==
PROVIDERS: PCP Internal Medicine; Visit Provider Nurse Practitioner Family
DX: Z00.00 Encounter for general adult medical examination without abnormal findings (principal); J45.909 Unspecified asthma, uncomplicated; F31.9 Bipolar disorder, unspecified; Z23 Encounter for immunization
CPT/HCPCS: 90471; 90686; 99395

== ENCOUNTER 2023-08-15 12:36 | Outpatient (AMB) | payer OTHER, SELFPAY ==
[2023-08-15 13:01] VITALS: BP 100/62; PULSE 86; O2SAT 100; BMI 30.7
--- NOTE | 2023-08-15 13:01 | MHC.OFFVIS ---
Intake Vital Signs 08/15/23 13:01 Height 5 ft 10 in Weight 213 lb 13.574 oz BMI 30.7 BP 100/62 Blood Pressure Location Lt brachial Position Sitting Pulse 86 Pulse Source Doppler Pulse Oximetry (%) 100 Oxygen Delivery Method Room Air Intake Visit Reasons: F/U for new medication Allergies mushroom Allergy (Severe, Verified 08/15/23 13:07) ANAPHYLAXIS ketorolac [From TORADOL] Allergy (Intermediate, Verified 08/15/23 13:07) HALLUCINATIONS nitrofurantoin [From MACROBID] Allergy (Intermediate, Verified 08/15/23 13:07) SWELLING, ITCHY tramadol Allergy (Unknown, Verified 08/15/23 13:07) something lamotrigine [Lamictal] Adverse Reaction (Unknown, Verified 08/15/23 13:07) aggression lamictal Allergy (Unknown, Uncoded 07/28/23 07:30) something mushrooms Allergy (Unknown, Uncoded 07/28/23 07:30) anaphylaxis HPI F/U for new medication HPI Details 38-year-old lady, nonsmoker, followed for severe persistent asthma and environmental allergies. After the last office visit she was switched from Xolair to Dupixent with significant improvment in her symptom control. She denies any recent exacerbations. She continues to use Symbicort, albuterol MDI, Singulair, and Zyrtec. [facility] Medical History Difficulty breathing Shortness of breath Chest tightness Exacerbation of asthma Eczema Bilateral shoulder pain Sinus congestion Shoulder pain, left Nasal congestion Hypersomnia Back pain Hx LEEP (loop electrosurgical excision procedure), cervix, Peripheral neuropathy Obesity (BMI 30-39.9) Knee osteoarthritis Vitamin D deficiency Migraine GERD (gastroesophageal reflux disease) Bipolar disorder Asthma Surgical History H/O tubal ligation History of appendectomy History of hysterectomy Hx of endoscopy Family History Father Heart attack Mother Heart attack Lupus Breast cancer Maternal Grandmother Uterine cancer Social History Housing: House Alcohol intake: former Patient Tobacco Use Status: Never used Tobacco e-Cigarette/Vaping Use: Never Used Second Hand Smoke Exposure: Yes Current occupational status: employed Cognitive needs: No Hearing needs: No Vision needs: No Review of Systems Const Denies daytime sleepiness, Denies excessive sweating, Denies fatigue, Denies fever(s), Denies lethargy, Denies malaise, Denies night sweats, Denies snoring and Denies weight loss Eyes Denies blurry vision and Denies itchy eyes ENT Denies nasal congestion, Denies post nasal drip, Denies sinus pain, Denies sinus pressure and Denies other ( Thrush) Card Denies chest pain, Denies pedal edema, Denies dyspnea, Denies orthopnea and Denies paroxysmal nocturnal dyspnea Resp Denies cough, Denies hemoptysis, Denies excessive phlegm production, Denies dyspnea, Denies snoring and Denies wheezing GI Denies abdominal pain and Denies heartburn Musc Denies myalgias, Denies arthralgias and Denies joint swelling Skin/Breast Denies rash Neuro Denies memory loss and Denies seizure-like activity Psych Denies abnormal sleep pattern, Denies anxiety and Denies memory loss Endo Denies excessive sweating, Denies fatigue and Denies heat intolerance Silas/Lymph Denies easy bruising Aller/Immun Denies itchy eyes, Denies seasonal rhinorrhea and Denies wheezing Physical Exam Vital Signs: Last Vital Signs Pulse 86 08/15/23 13:01 BP 100/62 08/15/23 13:01 Pulse Ox 100 08/15/23 13:01 Oxygen Delivery Method Room Air 08/15/23 13:01 BMI result Body Mass Index 30.7 Const General: no acute distress and alert Nutritional Appearance: not obese Orientation/consciousness: Other orientation findings ( oriented) HEENT Head: Yes atraumatic Eyes General: appearance normal, both eyes and all related structures Sclerae: sclerae normal EOM: EOMs intact bilaterally Neck Neck: Yes supple Lymphatic: no lymphadenopathy noted Resp Effort & Inspection: normal respiratory effort and no use of accessory muscles Auscultation: clear to auscultation bilaterally Cardio Rate: regular rate Rhythm: regular rhythm Heart sounds: no gallops, no murmurs and no rubs Skin General skin exam: other ( warm) Extrem General: No clubbing, No cyanosis and No edema Assessment & Plan Assessment & Plan (1) Asthma: Code(s): J45.909 - Unspecified asthma, uncomplicated Plan: Well controlled on Dupixent, Symbicort, and albuterol MDI. Continue current regimen. (2) Environmental allergies: Code(s): Z91.09 - Other allergy status, other than to drugs and biological substances Plan: Well controlled on Dupixent, Singulair, and Zyrtec. Continue current regimen. Coding Level of Care Code Est Pt Level 4 (76579) Diagnoses Asthma J45.909 Environmental allergies Z91.09
== END 2023-08-15 13:15 | disposition home or self-care (01) ==
PROVIDERS: PCP Internal Medicine; Visit Provider Internal Medicine Pulmonary Disease
DX: J45.909 Unspecified asthma, uncomplicated (principal); Z91.09 Other allergy status, other than to drugs and biological substances
CPT/HCPCS: 99214

== ENCOUNTER → 2023-08-15 12:36 | Outpatient (BNVA) | payer OTHER, SELFPAY | PROVIDERS: PCP Internal Medicine; Visit Provider Internal Medicine Pulmonary Disease | DX: J45.909 Unspecified asthma, uncomplicated (principal); Z91.09 Other allergy status, other than to drugs and biological substances | CPT/HCPCS: 99212 ==

== ENCOUNTER 2023-10-09 14:27 | Outpatient (AMB) | payer OTHER, SELFPAY ==
--- NOTE | 2023-10-09 14:28 | MHC.PC.OV ---
Intake Visit Reasons: 3 Month Follow Up Asthma, COVID Pos. Allergies mushroom Allergy (Severe, Verified 10/09/23 14:29) ANAPHYLAXIS ketorolac [From TORADOL] Allergy (Intermediate, Verified 10/09/23 14:29) HALLUCINATIONS nitrofurantoin [From MACROBID] Allergy (Intermediate, Verified 10/09/23 14:29) SWELLING, ITCHY tramadol Allergy (Unknown, Verified 10/09/23 14:29) something lamotrigine [Lamictal] Adverse Reaction (Unknown, Verified 10/09/23 14:29) aggression lamictal Allergy (Unknown, Uncoded 10/09/23 14:29) something mushrooms Allergy (Unknown, Uncoded 10/09/23 14:29) anaphylaxis Medication List - Last Reconciled 10/09/23 by Tha Arboleda MD albuterol sulfate 90 mcg/actuation (Ventolin HFA) 2 puffs inhalation Q6H PRN albuterol sulfate 0.63 mg (3 mL) inhalation QID PRN 30 days budesonide-formoterol 160-4.5 mcg/actuation (Symbicort) 2 puffs PO BID cetirizine (Zyrtec) 10 mg PO DAILY PRN 90 days cholecalciferol (vitamin D3) (Vitamin D3) 50 mcg PO DAILY dupilumab (Dupixent) 300 mg (2 mL) subcut Q2W 28 days fluconazole 150 mg PO Q3D 2 doses lidocaine 5% 1 appl topical BID PRN montelukast 10 mg PO DAILY 90 days nirmatrelvir-ritonavir 300 mg (150 mg x 2)-100 mg (Paxlovid) take TWO 150 mg tablets of nirmatrelvir with ONE 100 mg tablet of ritonavir twice daily for 5 days PO pantoprazole 40 mg PO DAILY tizanidine 4 mg PO BID PRN triamcinolone acetonide 0.5% 1 appl topical BID 14 days Tobacco use date assessed: 10/09/23 HPI 3 Month Follow Up Asthma, COVID Pos. HPI Details 38-year-old female with a history of asthma and bipolar disorder coming in for follow-up through Telehealth. Patient was last seen . Patient follows up with Pulmonary July 2023 placed on Dupixent from [employer] with improvement [facility] Medical History Difficulty breathing Shortness of breath Chest tightness Exacerbation of asthma Eczema Bilateral shoulder pain Sinus congestion Shoulder pain, left Nasal congestion Hypersomnia Back pain Hx LEEP (loop electrosurgical excision procedure), cervix, Peripheral neuropathy Obesity (BMI 30-39.9) Knee osteoarthritis Vitamin D deficiency Migraine GERD (gastroesophageal reflux disease) Bipolar disorder Asthma Surgical History H/O tubal ligation History of appendectomy History of hysterectomy Hx of endoscopy Family History Father Heart attack Mother Heart attack Lupus Breast cancer Maternal Grandmother Uterine cancer Social History Housing: House Alcohol intake: former Patient Tobacco Use Status: Never used Tobacco e-Cigarette/Vaping Use: Never Used Second Hand Smoke Exposure: Yes Current occupational status: employed Cognitive needs: No Hearing needs: No Vision needs: No Questionnaire Thrive Questionnaire Date Thrive assessed: 02/10/23 AUDIT C Alcohol Use Questionnaire (AUDIT-C) 1. How often do you have a drink containing alcohol?: Monthly or less 2. How many drinks containing alcohol do you have on a typical day when you are drinking?: 1 or 2 3. How often do you have six or more drinks on one occasion?: Never Total Score: 1 ANUPAM-7 AMB Questionnaire ANUPAM-7 Date ANUPAM - 7 assessed: 10/09/23 Source: Developed by Drs. Esa Castillo, Rukhsana Blanco, Stan Anguiano and colleagues, with an educational zak from [employer]. Physical exam (Primary Care) Tobacco/Smoking Status: Tobacco use Status Tobacco use date assessed 10/09/23 10/09/23 14:30 Patient Tobacco Use Status Never used Tobacco 10/09/23 14:30 e-Cigarette/Vaping Use Never Used 10/09/23 14:30 Thrive Assessment: Date of Thrive Assessment Date Thrive assessed 02/10/23 10/09/23 14:30 Telehealth Telehealth Location of provider rendering services: practice address Location of patient: address on file Patient Identification confirmed using: Name, : Yes Telehealth method: voice only (android // [phone]) Patient verbally consented to treatment: Yes Patient verbally consented to billing insurance company: Yes Patient informed of any privacy concerns related to visit: Yes Minutes spent on Phone/Video with Pt.: 15 Assessment and Plan Assessment & Plan (1) Asthma: Code(s): J45.909 - Unspecified asthma, uncomplicated Plan: Refill done for the Ventolin., keep well hydrated (2) COVID-19 virus infection: Comment: October 09, 2023 Code(s): U07.1 - COVID-19 Plan: Keep well hydrated, antiviral sent in discussed about Cepacol lozenges for sore throat, Delsym for dry cough and Mucinex for productive cough. Medications: New nirmatrelvir-ritonavir 300 mg (150 mg x 2)-100 mg (Paxlovid) take TWO 150 mg tablets of nirmatrelvir with ONE 100 mg tablet of ritonavir twice daily for 5 days PO 30 ea 0RF Refilled albuterol sulfate 90 mcg/actuation (Ventolin HFA) 2 puffs inhalation Q6H PRN 8.5 grams 0RF shortness of breath or wheezing J45.20 - Mild intermittent asthma, uncomplicated Coding Level of Care Code Tele Est Pt Level 3 (36840) Diagnoses Asthma J45.909 COVID-19 virus infection U07.1
== END 2023-10-09 16:12 | disposition home or self-care (01) ==
LOC: HO.HMGH 14:27
PROVIDERS: PCP Internal Medicine; Visit Provider Internal Medicine
DX: J45.909 Unspecified asthma, uncomplicated (principal); U07.1 COVID-19
CPT/HCPCS: 99213

== ENCOUNTER 2024-02-24 08:11 | Outpatient (REF) | payer OTHER, SELFPAY ==
[2024-02-24 08:58] LABS: Basophils Percent Auto 0.6 % (0-2); Eosinophils Percent Auto 0.9 % (0-4); Lymphocytes Absolute Auto 2.4 X10*3/uL (1.2-4.9); Lymphocytes Percent Auto 69.6 % (20-40); MANUAL DIFF FLAG SCAN; Mean Corpuscular HGB Conc 33.3 g/dl (31.0-35.0); Mean Corpuscular Hemoglobin 28.2 pg (27.0-33.0); Mean Corpuscular Volume 84.6 fL (80.0-98.0); Mean Platelet Volume 9.6 fL (9.4-12.3); Monocytes Absolute Auto 0.3 X10*3/uL (0.1-1.2); Monocytes Percent Auto 8.1 % (2-11); Neutrophils Absolute Auto 0.7 x10*3/uL (2.0-8.3); Neutrophils Percent Auto 20.8 % (45-73); Platelet Count 349 X10*3/uL (160-400); Red Blood Count 4.61 X10*6/uL (4.20-5.50); Red Cell Distribution Width 13.1 % (11.0-16.0); SCAN SMEAR FLAG 1; White Blood Count 3.5 X10*3/uL (4.8-10.8)
[2024-02-24 09:15] LABS: SLIDE REVIEW VERIFIED
[2024-02-24 09:42] LABS: Alanine Aminotransferase 18 U/L (0-31); Albumin Level 4.1 g/dL (3.5-5.0); Alkaline Phosphatase 83 U/L (39-117); Anion Gap 10 (12-20); Aspartate Amino Transferase 19 U/L (5-31); Bilirubin Total 0.4 mg/dL (0.0-1.0); Blood Urea Nitrogen 7 mg/dL (9-16); Calcium 9.5 mg/dL (8.4-10.2); Carbon Dioxide 23 mmol/L (22-29); Chloride 110 mmol/L (96-108); Cholesterol 148 mg/dL (<200); Estimated Glomerular Filt Rate > 60; Glucose Fasting 85 mg/dL (60-99); HDL Cholesterol 49 mg/dL (>40); LDL Cholesterol Calculated 85 mg/dL (<100); Potassium 3.6 mmol/L (3.3-5.1); Sodium 139 mmol/L (135-145); Total Protein 7.2 g/dL (6.5-8.0); Triglycerides 72 mg/dL (<150)
[2024-02-24 09:59] LABS: TSH reflex Free T4 0.97 uIU/mL (0.32-4.0); Vitamin D 25-OH Total 21.7 ng/mL (>30)
[2024-02-24 10:54] LABS: Folate 4.2 ng/mL (> or = 4.0); Vitamin B12 216 pg/mL (200-900)
[2024-03-01 06:38] LABS: Vitamin B1 <6 nmol/L (8-30)
== END 2024-02-24 08:12 | disposition home or self-care (01) ==
LOC: HO.LAB 08:11
PROVIDERS: Visit Provider Nurse Practitioner Family
DX: E66.9 Obesity, unspecified (principal); Z13.21 Encounter for screening for nutritional disorder; Z13.0 Encounter for screening for diseases of the blood and blood-forming organs and certain disorders involving the immune mechanism; Z13.29 Encounter for screening for other suspected endocrine disorder; Z98.84 Bariatric surgery status
CPT/HCPCS: 36415; 80053; 80061; 82306; 82607; 82746; 84425; 84443; 85025

== ENCOUNTER 2024-07-26 13:24 | Outpatient (AMB) | payer OTHER, SELFPAY ==
--- NOTE | 2024-07-26 13:36 | A.OFFVIS_ITS ---
Vital Signs 07/26/24 13:37 Height 5 ft 10 in Weight 176 lb BMI 25.3 BP 112/60 Blood Pressure Location Rt brachial Position Sitting Pulse 71 Pulse Source Doppler Pulse Oximetry (%) 99 Oxygen Delivery Method Room Air Intake Visit Reasons: Asthma Allergies mushroom Allergy (Severe, Verified 10/09/23 14:29) ANAPHYLAXIS ketorolac [From TORADOL] Allergy (Intermediate, Verified 10/09/23 14:29) HALLUCINATIONS nitrofurantoin [From MACROBID] Allergy (Intermediate, Verified 10/09/23 14:29) SWELLING, ITCHY tramadol Allergy (Unknown, Verified 10/09/23 14:29) something lamotrigine [Lamictal] Adverse Reaction (Unknown, Verified 10/09/23 14:29) aggression lamictal Allergy (Unknown, Uncoded 10/09/23 14:29) something mushrooms Allergy (Unknown, Uncoded 10/09/23 14:29) anaphylaxis HPI HPI Asthma: Details: 39-year-old lady, nonsmoker, followed for severe persistent asthma and environmental allergies patient's symptoms previously well controlled Dupixent, Symbicort, albuterol and Zyrtec until she developed COVID-19 in April of 2024 with recurrence of symptoms several weeks later after which she started feeling like her asthma symptoms are no longer well controlled she has been complaining of nocturnal wheezing and dyspnea on exertion. [facility] [place] Medical History Difficulty breathing Shortness of breath Chest tightness Exacerbation of asthma Eczema Bilateral shoulder pain Sinus congestion Shoulder pain, left Nasal congestion Hypersomnia Back pain Hx LEEP (loop electrosurgical excision procedure), cervix, Peripheral neuropathy Obesity (BMI 30-39.9) Knee osteoarthritis Vitamin D deficiency Migraine GERD (gastroesophageal reflux disease) Bipolar disorder Asthma Surgical History H/O tubal ligation History of appendectomy History of hysterectomy Hx of endoscopy Family History Father Heart attack Mother Heart attack Lupus Breast cancer Maternal Grandmother Uterine cancer Social History Housing: House Alcohol intake: former Patient Tobacco Use Status: Never used Tobacco e-Cigarette/Vaping Use: Never Used Second Hand Smoke Exposure: Yes Current occupational status: employed Cognitive needs: No Hearing needs: No Vision needs: No Review of Systems Const Denies daytime sleepiness, Denies excessive sweating, Denies fatigue, Denies fever(s), Denies lethargy, Denies malaise, Denies night sweats, Denies snoring and Denies weight loss Eyes Denies blurry vision and Denies itchy eyes ENT Denies nasal congestion, Denies post nasal drip, Denies sinus pain, Denies sinus pressure and Denies other ( Thrush) Card Denies chest pain, Denies pedal edema, Denies dyspnea, Reports dyspnea on exertion, Denies orthopnea and Denies paroxysmal nocturnal dyspnea Resp Reports cough, Denies hemoptysis, Denies excessive phlegm production, Denies dyspnea, Reports dyspnea on exertion, Denies snoring and Reports wheezing GI Denies abdominal pain and Denies heartburn Musc Denies myalgias, Denies arthralgias and Denies joint swelling Skin/Breast Denies rash Neuro Denies memory loss and Denies seizure-like activity Psych Denies abnormal sleep pattern, Denies anxiety and Denies memory loss Endo Denies excessive sweating, Denies fatigue and Denies heat intolerance Silas/Lymph Denies easy bruising Aller/Immun Denies itchy eyes, Denies seasonal rhinorrhea and Reports wheezing Physical Exam Vital Signs: Last Vital Signs Pulse 71 07/26/24 13:37 BP 112/60 07/26/24 13:37 Pulse Ox 99 07/26/24 13:37 Oxygen Delivery Method Room Air 07/26/24 13:37 BMI result Body Mass Index 25.3 Const General: no acute distress and alert Nutritional Appearance: not obese Orientation/consciousness: Other orientation findings ( oriented) HEENT Head: Yes atraumatic Eyes General: appearance normal, both eyes and all related structures Sclerae: sclerae normal EOM: EOMs intact bilaterally Neck Neck: Yes supple Lymphatic: no lymphadenopathy noted Resp Effort & Inspection: normal respiratory effort and no use of accessory muscles Auscultation: clear to auscultation bilaterally Cardio Rate: regular rate Rhythm: regular rhythm Heart sounds: no gallops, no murmurs and no rubs Skin General skin exam: other ( warm) Extrem General: No clubbing, No cyanosis and No edema Assessment & Plan Assessment & Plan (1) Post covid-19 condition, unspecified: Code(s): U09.9 - Post COVID-19 condition, unspecified Category: Medical Plan: Worsening symptoms after COVID-19, will obtain chest x-ray in treat with prednisone taper, if not improving, will consider switching immunologic therapy. (2) Asthma: Code(s): J45.909 - Unspecified asthma, uncomplicated Category: Medical Plan: Previously well controlled on Dupixent, Symbicort, albuterol MDI, now with worsening symptoms after COVID, if not improving after prednisone taper, will consider switching to Fasenra or Tezspire. (3) Environmental allergies: Code(s): Z91.09 - Other allergy status, other than to drugs and biological substances Category: Medical Plan: Previously well controlled on Dupixent and Singulair. Continue current regimen. Orders: Orders XR chest 2V Today J45.909 - Unspecified asthma, uncomplicated Medications: New prednisone Take 4 tabs daily for 3 days, then go down by 1 tab every 3 days 10 mg PO DIRECTED 30 tabs 0RF Coding Level of Care Code Est Pt Level 4 (00215) Complex EM visit Add On G2211 Diagnoses Post covid-19 condition, unspecified U09.9 Asthma J45.909 Environmental allergies Z91.09
[2024-07-26 13:37] VITALS: BP 112/60; PULSE 71; O2SAT 99; BMI 25.3
== END 2024-07-26 13:56 | disposition home or self-care (01) ==
PROVIDERS: PCP Internal Medicine; Visit Provider Internal Medicine Pulmonary Disease
DX: U09.9 Post COVID-19 condition, unspecified (principal); J45.909 Unspecified asthma, uncomplicated; Z91.09 Other allergy status, other than to drugs and biological substances
CPT/HCPCS: 99214; G2211

== ENCOUNTER → 2024-07-26 13:24 | Outpatient (BNVA) | payer OTHER, SELFPAY | PROVIDERS: PCP Internal Medicine; Visit Provider Internal Medicine Pulmonary Disease | DX: J45.909 Unspecified asthma, uncomplicated (principal); U09.9 Post COVID-19 condition, unspecified; Z91.09 Other allergy status, other than to drugs and biological substances | CPT/HCPCS: 99212 ==

== ENCOUNTER 2024-07-31 08:30 | Outpatient (AMB) | payer OTHER, SELFPAY ==
--- NOTE | 2024-07-31 08:37 | A.OFFPC_ITS ---
Vital Signs 07/31/24 08:39 Height 5 ft 10 in Weight 180 lb BMI 25.8 BP 108/62 Blood Pressure Location Lt brachial Position Sitting Pulse 78 Pulse Source Pulse Oximeter Pulse Oximetry (%) 98 Oxygen Delivery Method Room Air Intake Visit Reasons: PE Allergies mushroom Allergy (Severe, Verified 07/31/24 08:39) ANAPHYLAXIS ketorolac [From TORADOL] Allergy (Intermediate, Verified 07/31/24 08:39) HALLUCINATIONS nitrofurantoin [From MACROBID] Allergy (Intermediate, Verified 07/31/24 08:39) SWELLING, ITCHY tramadol Allergy (Unknown, Verified 07/31/24 08:39) something lamotrigine [Lamictal] Adverse Reaction (Unknown, Verified 07/31/24 08:39) aggression lamictal Allergy (Unknown, Uncoded 07/31/24 08:39) something mushrooms Allergy (Unknown, Uncoded 07/31/24 08:39) anaphylaxis Medication List - Last Reconciled 07/31/24 by Tha Dial Po, albuterol sulfate 0.63 mg (3 mL) inhalation QID PRN 30 days albuterol sulfate 90 mcg/actuation (Ventolin HFA) 2 puffs inhalation Q6H PRN budesonide-formoterol 160-4.5 mcg/actuation (Symbicort) 2 puffs PO BID cetirizine (Zyrtec) 10 mg PO DAILY PRN 90 days cholecalciferol (vitamin D3) (Vitamin D3) 50 mcg PO DAILY dupilumab (Dupixent) 300 mg (2 mL) subcut Q2W 28 days lidocaine 5% 1 appl topical BID PRN montelukast 10 mg PO DAILY 90 days pantoprazole 40 mg PO DAILY prednisone 10 mg PO DIRECTED thiamine HCl (vitamin B1) 100 mg PO DAILY tizanidine 4 mg PO BID PRN triamcinolone acetonide 0.5% 1 appl topical BID 14 days Tobacco use date assessed: 10/09/23 Dental Screening Dental Screen Date: 07/31/24 Did you have a dental visit in the last 12 months?: Yes Did you have a dental problem in the last 6 months where you did not have access to dental care?: No Was dental information given to patient?: Patient has dentist HPI PE HPI Details 39-year-old female with a history of ast hma(noted 37 lb weight loss) GERD migraine bipolar disorder with history of laparoscopic sleeve gastrectomy 04/06/2023. coming in for physical exam last seen in September 2023. Review of the notes has been following up with Pulmonary for the asthma developed COVID-19 infection in 05/07/2024. Symbicort albuterol was on Dupixent given steroids. Noted last blood work in February showing low vitamin B1 and B12, has lost 110 lbs PFSH Medical History Difficulty breathing Shortness of breath Chest tightness Exacerbation of asthma Eczema Bilateral shoulder pain Sinus congestion Shoulder pain, left Nasal congestion Hypersomnia Back pain Hx LEEP (loop electrosurgical excision procedure), cervix, Peripheral neuropathy Obesity (BMI 30-39.9) Knee osteoarthritis Vitamin D deficiency Migraine GERD (gastroesophageal reflux disease) Bipolar disorder Asthma Surgical History H/O tubal ligation History of appendectomy History of hysterectomy Hx of endoscopy Family History Father Heart attack Mother Heart attack Lupus Breast cancer Maternal Grandmother Uterine cancer Social History (Reviewed 07/26/24 @ 13:39 by Angeles Rodríguez [facility] [place]) Housing: House Alcohol intake: former Patient Tobacco Use Status: Never used Tobacco e-Cigarette/Vaping Use: Never Used Second Hand Smoke Exposure: Yes Current occupational status: employed Cognitive needs: No Hearing needs: No Vision needs: No Questionnaire PHQ-9 Over the last 2 weeks, how often have you been bothered by any of the following problems? 1. Little interest or pleasure in doing things: not at all 2. Feeling down, depressed, or hopeless: not at all 3. Trouble falling or staying asleep, or sleeping too much: nearly every day 4. Feeling tired or having little energy: more than half the days 5. Poor appetite or overeating: not at all 6. Feeling bad about yourself - or that you are a failure or have let yourself or your family down: not at all 7. Trouble concentrating on things, such as reading the newspaper or watching television: several days 8. Moving or speaking so slowly that other people could have noticed. Or the opposite - being so fidgety or restless that you have been moving around a lot more than usual: not at all 9. Thoughts that you would be better off or of hurting yourself in some way: not at all Total score: 6 Source: Developed by Drs. Esa Castillo, Rukhsana Blanco, Stan Anguiano and colleagues, with an educational zak from [employer]. Thrive Questionnaire Date Thrive assessed: 07/31/24 I am a: Patient What is your living situation today?: I have a steady place to live Within the past 12 months, did the food you bought not last and you didn't have the money to get more?: Never true Within the past 12 months, did you worry whether your food would run out before you got money to buy more?: Never true Do you have trouble paying for medicines?: No Do you have trouble getting transportation to medical appointments?: No Do you have trouble paying your heating and electricity bill?: No Do you have trouble taking care of your child, family member or friend?: No Do you have trouble with day-to-day activities such as bathing, preparing meals, shopping, managing finances, etc.?: No Are you currently unemployed and looking for a job?: No Are you interested in more education?: No Please select the resources that you would like help with: None Currently or been in a relationship where the following occur: No concerns reported THRIVE Score: 0 AUDIT C Alcohol Use Questionnaire (AUDIT-C) 1. How often do you have a drink containing alcohol?: Never Total Score: 0 ANUPAM-7 AMB Questionnaire ANUPAM-7 Date ANUPAM - 7 assessed: 07/31/24 Feeling nervous, anxious, or on edge: 1 = Several days Not being able to stop or control worryin = Several days Worrying too much about different things: 2 = More than half the days Trouble relaxin = Nearly every day Being so restless that it is hard to sit still: 2 = More than half the days Becoming easily annoyed or irritable: 3 = Nearly every day Feeling afraid as if something awful might happen: 1 = Several days Total ANUPAM-7 score (0-4 normal; 5-9 mild; 10-14 moderate; 15-21 severe): 13 Source: Developed by Drs. Esa Castillo, Rukhsana Blanco, Stan Anguiano and colleagues, with an educational zak from [employer]. Review of Systems Const Denies poor appetite and Denies weakness Eyes Denies no additional complaints ENT Reports Normal hearing present, Denies dizziness, Denies nasal congestion, Denies tinnitus and Denies sore throat Card Denies chest pain, Denies syncope, Denies rapid heart rate and Denies dyspnea Resp Denies cough and Denies dyspnea GI Denies change in stool character, Reports constipation, Denies diarrhea, Denies nausea and Denies vomiting Denies urinary frequency, Denies difficulty voiding and Denies dysuria Neuro Reports Normal hearing present, Denies confusion, Denies dizziness, Denies syncope and Denies weakness Psych Denies confusion Physical exam (Primary Care) Tobacco/Smoking Status: Tobacco use Status Tobacco use date assessed 10/09/23 10/09/23 14:30 Patient Tobacco Use Status Never used Tobacco 10/09/23 14:30 e-Cigarette/Vaping Use Never Used 10/09/23 14:30 Thrive Assessment: Date of Thrive Assessment Date Thrive assessed 02/10/23 10/09/23 14:30 Currently or been in a relationship where the following occur: No concerns reported Const General: No confusion Orientation/consciousness: No confusion HENMT Head: Yes normocephalic Ears: external ears normal and TM's normal bilaterally Face and sinus: Yes normal facial exam Mouth: moist mucous membranes Throat: Yes tonsils normal Eyes Conjunctivae: conjunctivae normal Pupils: Equal, round and reactive pupils present and Pupil accommodation reflex normal Direct Ophthalmoscopy: normal light reflex Neck Neck: No lymphadenopathy Thyroid: Thyroid normal Chest Chest palpation & inspection: normal inspection of the chest Resp Effort & Inspection: normal respiratory effort and no audible wheezes Auscultation: clear to auscultation bilaterally, no crackles, no wheezes and lung sounds not diminished Cardio Rate: regular rate Rhythm: regular rhythm Peripheral pulses: radial pulses present and dorsalis pedis present GI Palpation (GI): no masses Auscultation: normal bowel sounds and normoactive bowel sounds Rectal Exam - Female: deferred Skin General skin exam: no rashes or lesions noted Rashes: no rashes Neuro General: No confusion Cranial nerves: Yes Equal, round and reactive pupils present and Yes Normal hearing present Cognition (Neuro): normal cognition Gait exam (Neuro): Normal gait present Motor exam (neuro): 5/5 motor strength present throughout Deep tendon reflexes (DTR's): Right brachioradialis reflex intensity grade: 2+, Left brachioradialis reflex intensity grade: 2+, Right patellar reflex intensity grade: 2+ and Left patellar reflex intensity grade: 2+ Extrem General: No edema Coding Level of Care Code Est Pt Prev Care 18-39y(29037) Diagnoses Annual physical exam Z00.00 S/P laparoscopic sleeve gastrectomy Z98.84 Bipolar affective disorder, remission status unspecified F31.9 Active/Remission status: remission status unspecified Uncomplicated asthma, unspecified asthma severity, unspecified whether persistent J45.909 Asthma complication type: uncomplicated Asthma persistence: unspecified Asthma severity: unspecified severity Vitamin B1 deficiency E51.9 Vitamin B12 deficiency E53.8 Pharyngoesophageal dysphagia R13.14 Dysphagia type: pharyngoesophageal phase Assessment & Plan Assessment & Plan (1) Annual physical exam: Code(s): Z00.00 - Encounter for general adult medical examination without abnormal findings Category: Medical Plan: Patient is advised to eat healthy, keep well hydrated, keep active and have adequate sleep. (2) S/P laparoscopic sleeve gastrectomy: Comment: March [address] Dr. Horvath Code(s): Z98.84 - Bariatric surgery status Category: Surgical Plan: Continue to follow-up with bariatric surgeon (3) B[facility] disorder: [facility] Code(s): F31.9 - Bipolar disorder, unspecified Category: Medical Qualifiers: Active/Remission status: remission status unspecified Qualified Code(s): F31.9 - Bipolar disorder, unspecified Plan: Continue with counseling and therapy (4) Asthma: Code(s): J45.909 - Unspecified asthma, uncomplicated Category: Medical Qualifiers: Asthma complication type: uncomplicated Asthma persistence: unspecified Asthma severity: unspecified severity Qualified Code(s): J45.909 - Unspecified asthma, uncomplicated Plan: Patient continues to follow-up with Pulmonary and with the COVID-19 infection asthma has been exacerbating. Patient is continued on albuterol inhaler as well as Symbicort (5) Vitamin B1 deficiency: Code(s): E51.9 - Thiamine deficiency, unspecified Category: Medical Plan: Discussed about vitamin B deficiency (6) Vitamin B12 deficiency: Code(s): E53.8 - Deficiency of other specified B group vitamins Category: Medical Plan: Vitamin B12 1000 mcg once a day (7) Dysphagia: Code(s): R13.10 - Dysphagia, unspecified Category: Medical Qualifiers: Dysphagia type: pharyngoesophageal phase Qualified Code(s): R13.14 - Dysphagia, pharyngoesophageal phase Plan: Patient was advised workup with barium swallow Orders: Orders Thyroid Stimulating Hormone Today E53.8 - Deficiency of other specified B group vitamins Free T4 (Free Thyroxine) Today E53.8 - Deficiency of other specified B group vitamins Vitamin B12 and Folate Today E53.8 - Deficiency of other specified B group vitamins Vitamin B1 Today E53.8 - Deficiency of other specified B group vitamins Comprehensive Met. Panel Today E53.8 - Deficiency of other specified B group vitamins FL barium swallow Today R13.10 - Dysphagia, unspecified Complete Blood Count Auto Diff Today E53.8 - Deficiency of other specified B group vitamins Vitamin D 25-OH Total Today E53.8 - Deficiency of other specified B group vitam ins FL upper GI series Today R13.10 - Dysphagia, unspecified
[2024-07-31 08:39] VITALS: BP 108/62; PULSE 78; O2SAT 98; BMI 25.8
== END 2024-07-31 09:17 | disposition home or self-care (01) ==
PROVIDERS: PCP Internal Medicine; Visit Provider Internal Medicine
DX: Z00.00 Encounter for general adult medical examination without abnormal findings (principal); Z98.84 Bariatric surgery status; F31.9 Bipolar disorder, unspecified; J45.909 Unspecified asthma, uncomplicated; E51.9 Thiamine deficiency, unspecified; E53.8 Deficiency of other specified B group vitamins; R13.14 Dysphagia, pharyngoesophageal phase; Z23 Encounter for immunization

== ENCOUNTER → 2024-07-31 08:30 | Outpatient (BNVA) | payer OTHER, SELFPAY | PROVIDERS: PCP Internal Medicine; Visit Provider Internal Medicine | DX: Z00.00 Encounter for general adult medical examination without abnormal findings (principal); Z23 Encounter for immunization; F31.9 Bipolar disorder, unspecified; J45.909 Unspecified asthma, uncomplicated; E51.9 Thiamine deficiency, unspecified; E53.8 Deficiency of other specified B group vitamins; R13.14 Dysphagia, pharyngoesophageal phase; Z98.84 Bariatric surgery status | CPT/HCPCS: 90471; 90656; 96127; 99395 ==

== ENCOUNTER 2024-08-07 07:11 | Outpatient (REF) | payer OTHER, SELFPAY ==
--- NOTE | ~2024-08-07 | FL_ITS ---
EXAMINATION: XR FLUOROSCOPY UPPER GI WITH AIR CLINICAL INFORMATION: Dysphagia COMPARISON: Upper GI 2019 TECHNIQUE: Fluoroscopic air contrast upper GI examination was performed utilizing standard techniques with thin and thick barium and effervescent granules. Numerous spot images were obtained. FINDINGS: Lateral cine images of the oropharynx and hypopharynx demonstrate normal swallow mechanism with normal epiglottic inversion and soft palate elevation. No tracheal penetration, glottic or subglottic aspiration identified. No nasopharyngeal reflux present. Hypopharyngeal structures appear normal without evidence of mass or diverticulum. There was no significant cricopharyngeal achalasia. Dual and single contrast images of the esophagus demonstrate normal caliber, contour, and mucosal pattern. No evidence of stricture, mass, or ulcerations identified. Esophageal peristalsis was normal. A small type I hiatal hernia is present. Gastroesophageal reflux is seen up to the thoracic inlet. Dual contrast and single contrast images of the stomach demonstrated post surgical changes consistent with prior history of sleeve gastrectomy. There is a redundant amount of fundus present. Also a small diverticulum noted in the posterior medial wall of the body of the stomach. No masses or ulcerations are seen. Contrast freely passed into the gastric antrum and duodenal bulb without delay. Single and air-contrast images of the duodenal bulb demonstrate no abnormality. The duodenal sweep has a normal appearance, course, and mucosal fold appearance. The imaged proximal jejunum has a normal fold pattern and caliber. FLUOROSCOPY TIME: 4 minutes 17 seconds Number of Spot Images: 11 Number of Cine: 13 DOSE AREA PRODUCT: 2024 uGy-m2 (microgray-meter squared) FL/FL upper GI w air w Ba Swallow IMPRESSION: 1. Small type I hiatal hernia. 2. Significant gastroesophageal reflux. 3. Post surgical changes consistent with prior history of sleeve gastrectomy. There is a mildly redundant portion of the fundus present. 4. Small diverticulum noted in the posterior medial wall of the body of the stomach. This procedure was performed by Colt Tomlinson PA-C, and supervised by Dr. Kaminski Electronically signed by: Teddy Kaminski MD 08/07/2024 03:26 PM [facility]
[2024-08-07 07:23] LABS: MANUAL DIFF FLAG NO
[2024-08-07 07:56] LABS: Basophils Percent Auto 0.9 % (0-2); Eosinophils Absolute Auto 0.1 X10*3/uL (0.0-0.4); Eosinophils Percent Auto 1.4 % (0-4); Hematocrit 38.1 % (37.0-47.0); Hemoglobin 12.6 g/dl (12.0-16.0); Lymphocytes Absolute Auto 2.3 X10*3/uL (1.2-4.9); Lymphocytes Percent Auto 54.2 % (20-40); Mean Corpuscular HGB Conc 33.1 g/dl (31.0-35.0); Mean Corpuscular Hemoglobin 27.8 pg (27.0-33.0); Mean Corpuscular Volume 84.1 fL (80.0-98.0); Mean Platelet Volume 9.7 fL (9.4-12.3); Monocytes Absolute Auto 0.4 X10*3/uL (0.1-1.2); Monocytes Percent Auto 9.6 % (2-11); Neutrophils Absolute Auto 1.4 x10*3/uL (2.0-8.3); Neutrophils Percent Auto 33.9 % (45-73); Platelet Count 350 X10*3/uL (160-400); Red Blood Count 4.53 X10*6/uL (4.20-5.50); Red Cell Distribution Width 12.9 % (11.0-16.0); White Blood Count 4.3 X10*3/uL (4.8-10.8)
[2024-08-07 08:11] LABS: Appearance Urine Cloudy; Color Urine Dark Yellow; Glucose Urine UA Negative (Negative); Leukocyte Esterase Urine Negative (Negative); Nitrite Urine Negative (Negative); PH 5.5 (5.0-9.0); Specific Gravity - Urine >= 1.030 (1.005-1.025); Urine Blood Negative (Negative); Urine Ketones Trace mg/dL (Negative); Urine Protein Negative (Neg-Trace)
[2024-08-07 08:39] LABS: Alanine Aminotransferase 18 U/L (0-31); Alkaline Phosphatase 80 U/L (39-117); Anion Gap 10 (12-20); Aspartate Amino Transferase 22 U/L (5-31); Bilirubin Total 0.5 mg/dL (0.0-1.0); Blood Urea Nitrogen 9 mg/dL (9-16); Calcium 9.2 mg/dL (8.4-10.2); Carbon Dioxide 25 mmol/L (22-29); Chloride 109 mmol/L (96-108); Estimated Glomerular Filt Rate > 60; Glucose Random 93 mg/dL (60-115); Potassium 3.8 mmol/L (3.3-5.1); Sodium 140 mmol/L (135-145); Total Protein 6.9 g/dL (6.5-8.0)
[2024-08-07 08:56] LABS: Free T4 (Free Thyroxine) 1.06 ng/dL (0.71-1.85); Vitamin D 25-OH Total 25.1 ng/mL (>30)
[2024-08-07 09:05] LABS: Vitamin B12 218 pg/mL (200-900)
[2024-08-14 06:13] LABS: Vitamin B1 10 nmol/L (8-30)
== END 2024-08-07 07:12 | disposition home or self-care (01) ==
LOC: HO.XRAY 07:11
PROVIDERS: Absent Provider Internal Medicine Pulmonary Disease; PCP Internal Medicine; Visit Provider Internal Medicine
DX: R30.0 Dysuria (principal); N39.46 Mixed incontinence; E53.8 Deficiency of other specified B group vitamins; J45.909 Unspecified asthma, uncomplicated; K21.9 Gastro-esophageal reflux disease without esophagitis; Z98.890 Other specified postprocedural states
CPT/HCPCS: 36415; 71046; 74246; 80053; 81003; 82306; 82607; 82746; 84425; 84439; 84443; 85025

== ENCOUNTER → 2024-08-07 07:26 | Outpatient (BNV) | payer OTHER, SELFPAY | PROVIDERS: Absent Provider Internal Medicine Pulmonary Disease; PCP Internal Medicine; Visit Provider Physician Assistant Surgical | DX: R13.10 Dysphagia, unspecified (principal) | CPT/HCPCS: 74246 ==

== ENCOUNTER 2024-10-02 09:10 | Outpatient (AMB) | payer OTHER, SELFPAY ==
[2024-10-02 09:15] VITALS: BP 114/78; PULSE 80; O2SAT 98; BMI 25.8
--- NOTE | 2024-10-02 09:15 | A.OFFVIS_ITS ---
Vital Signs 10/02/24 09:15 Height 5 ft 10 in Weight 180 lb BMI 25.8 BP 114/78 Blood Pressure Location Rt brachial Position Sitting Pulse 80 Pulse Source Doppler Pulse Oximetry (%) 98 Oxygen Delivery Method Room Air Intake Visit Reasons: F/u Allergies mushroom Allergy (Severe, Verified 10/02/24 09:19) ANAPHYLAXIS ketorolac [From TORADOL] Allergy (Intermediate, Verified 10/02/24 09:19) HALLUCINATIONS nitrofurantoin [From MACROBID] Allergy (Intermediate, Verified 10/02/24 09:19) SWELLING, ITCHY tramadol Allergy (Unknown, Verified 10/02/24 09:19) something lamotrigine [Lamictal] Adverse Reaction (Unknown, Verified 10/02/24 09:19) aggression lamictal Allergy (Unknown, Uncoded 07/31/24 08:39) something mushrooms Allergy (Unknown, Uncoded 07/31/24 08:39) anaphylaxis HPI HPI F/u: Details: 39-year-old lady, nonsmoker, followed for severe persistent asthma and environmental allergies patient's symptoms previously well controlled Dupixent, Symbicort, albuterol and Zyrtec until she developed COVID-19 in April of 2024 with recurrence of symptoms several weeks later after which she started feeling like her asthma symptoms were no longer controlled. Patient has been tried prednisone taper with improved, but still suboptimal baseline control of his symptoms. [facility] Medical History Difficulty breathing Shortness of breath Chest tightness Exacerbation of asthma Eczema Bilateral shoulder pain Sinus congestion Shoulder pain, left Nasal congestion Hypersomnia Back pain Hx LEEP (loop electrosurgical excision procedure), cervix, Peripheral neuropathy Obesity (BMI 30-39.9) Knee osteoarthritis Vitamin D deficiency Migraine GERD (gastroesophageal reflux disease) Bipolar disorder Asthma Surgical History H/O tubal ligation History of appendectomy History of hysterectomy Hx of endoscopy Family History Father Heart attack Mother Heart attack Lupus Breast cancer Maternal Grandmother Uterine cancer Social History Housing: House Alcohol intake: former Patient Tobacco Use Status: Never used Tobacco Tobacco use type: Cigarette e-Cigarette/Vaping Use: Never Used Second Hand Smoke Exposure: Yes Current occupational status: employed Cognitive needs: No Hearing needs: No Vision needs: No Review of Systems Const Denies daytime sleepiness, Denies excessive sweating, Denies fatigue, Denies fever(s), Denies lethargy, Denies malaise, Denies night sweats, Denies snoring and Denies weight loss Eyes Denies blurry vision and Denies itchy eyes ENT Denies nasal congestion, Denies post nasal drip, Denies sinus pain, Denies sinus pressure and Denies other ( Thrush) Card Denies chest pain, Denies pedal edema, Denies dyspnea, Denies orthopnea and Denies paroxysmal nocturnal dyspnea Resp Denies cough, Denies hemoptysis, Denies excessive phlegm production, Denies dyspnea, Denies snoring, Denies wheezing and Reports other (Chest tightness) GI Denies abdominal pain and Denies heartburn Musc Denies myalgias, Denies arthralgias and Denies joint swelling Skin/Breast Denies rash Neuro Denies memory loss and Denies seizure-like activity Psych Denies abnormal sleep pattern, Denies anxiety and Denies memory loss Endo Denies excessive sweating, Denies fatigue and Denies heat intolerance Silas/Lymph Denies easy bruising Aller/Immun Denies itchy eyes, Denies seasonal rhinorrhea and Denies wheezing Physical Exam Vital Signs: Last Vital Signs Pulse 80 10/02/24 09:15 BP 114/78 10/02/24 09:15 Pulse Ox 98 10/02/24 09:15 Oxygen Delivery Method Room Air 10/02/24 09:15 BMI result Body Mass Index 25.8 Const General: no acute distress and alert Nutritional Appearance: not obese Orientation/consciousness: Other orientation findings ( oriented) HEENT Head: Yes atraumatic Eyes General: appearance normal, both eyes and all related structures Sclerae: sclerae normal EOM: EOMs intact bilaterally Neck Neck: Yes supple Lymphatic: no lymphadenopathy noted Resp Effort & Inspection: normal respiratory effort and no use of accessory muscles Auscultation: other (Poor bilateral air movement) Cardio Rate: regular rate Rhythm: regular rhythm Heart sounds: no gallops, no murmurs and no rubs Skin General skin exam: other ( warm) Extrem General: No clubbing, No cyanosis and No edema Assessment & Plan Assessment & Plan (1) Asthma: Code(s): J45.909 - Unspecified asthma, uncomplicated Category: Medical Qualifiers: Asthma severity: unspecified severity Asthma persistence: unspecified Asthma complication type: uncomplicated Qualified Code(s): J45.909 - Unspecified asthma, uncomplicated Plan: Worsening control Dupixent, Symbicort, Singulair, albuterol MDI, and nebs. Will switch Dupixent to Tezspire. (2) Environmental allergies: Code(s): Z91.09 - Other allergy status, other than to drugs and biological substances Category: Medical Plan: Worsening control on Dupixent and Singulair, will try on Tezspire. Coding Level of Care Code Est Pt Level 4 (30470) Diagnoses Uncomplicated asthma, unspecified asthma severity, unspecified whether persistent J45.909 Asthma severity: unspecified severity Asthma persistence: unspecified Asthma complication type: uncomplicated Environmental allergies Z91.09
== END 2024-10-02 09:42 | disposition home or self-care (01) ==
PROVIDERS: PCP Internal Medicine; Visit Provider Internal Medicine Pulmonary Disease
DX: J45.909 Unspecified asthma, uncomplicated (principal); Z91.09 Other allergy status, other than to drugs and biological substances
CPT/HCPCS: 99214

== ENCOUNTER → 2024-10-02 09:10 | Outpatient (BNVA) | payer OTHER, SELFPAY | PROVIDERS: PCP Internal Medicine; Visit Provider Internal Medicine Pulmonary Disease | DX: J45.909 Unspecified asthma, uncomplicated (principal); Z91.09 Other allergy status, other than to drugs and biological substances | CPT/HCPCS: 99212 ==

== ENCOUNTER → 2024-11-25 09:21 | Outpatient (BNVA) | payer OTHER, SELFPAY | PROVIDERS: PCP Internal Medicine; Visit Provider Internal Medicine Pulmonary Disease ==

== ENCOUNTER 2025-01-28 08:48 | Outpatient (AMB) | payer OTHER, SELFPAY ==
[2025-01-28 08:50] VITALS: BP 114/68; PULSE 78; O2SAT 98; BMI 24.5
--- NOTE | 2025-01-28 08:50 | MHC.PC.OV ---
Vital Signs 01/28/25 08:50 Height 5 ft 10 in Weight 171 lb BMI 24.5 BP 114/68 Blood Pressure Location Lt brachial Position Sitting Pulse 78 Pulse Source Pulse Oximeter Pulse Oximetry (%) 98 Oxygen Delivery Method Room Air Intake Visit Reasons: Asthma Allergies mushroom Allergy (Severe, Verified 01/28/25 08:51) ANAPHYLAXIS ketorolac [From TORADOL] Allergy (Intermediate, Verified 01/28/25 08:51) HALLUCINATIONS nitrofurantoin [From MACROBID] Allergy (Intermediate, Verified 01/28/25 08:51) SWELLING, ITCHY tramadol Allergy (Unknown, Verified 01/28/25 08:51) something lamotrigine [Lamictal] Adverse Reaction (Unknown, Verified 01/28/25 08:51) aggression lamictal Allergy (Unknown, Uncoded 01/28/25 08:51) something mushrooms Allergy (Unknown, Uncoded 01/28/25 08:51) anaphylaxis Medication List - Last Reconciled 01/28/25 by Tha Arboleda, albuterol sulfate 0.63 mg (3 mL) inhalation QID PRN 30 days albuterol sulfate 90 mcg/actuation (Ventolin HFA) 2 puffs inhalation Q6H PRN budesonide-formoterol 160-4.5 mcg/actuation (Symbicort) 2 puffs PO BID cetirizine (Zyrtec) 10 mg PO DAILY PRN 90 days cholecalciferol (vitamin D3) (Vitamin D3) 50 mcg PO DAILY lidocaine 5% 1 appl topical BID PRN montelukast 10 mg PO DAILY 90 days pantoprazole 40 mg PO DAILY tezepelumab-ekko (Tezspire) 210 mg (1.91 mL) subcut Q4W thiamine HCl (vitamin B1) 100 mg PO DAILY tizanidine 4 mg PO BID PRN triamcinolone acetonide 0.5% 1 appl topical BID 14 days Tobacco use date assessed: 01/28/25 Dental Screening Dental Screen Date: 01/28/25 Did you have a dental visit in the last 12 months?: Yes Did you have a dental problem in the last 6 months where you did not have access to dental care?: No Was dental information given to patient?: Patient has dentist HPI Asthma HPI Details L lower back deny fall or trauma, not carrying and no trauma, 2 days , deny fall . tizanidine did not help. [facility] Medical History Difficulty breathing Shortness of breath Chest tightness Exacerbation of asthma Eczema Bilateral shoulder pain Sinus congestion Shoulder pain, left Nasal congestion Hypersomnia Back pain Hx LEEP (loop electrosurgical excision procedure), cervix, Peripheral neuropathy Obesity (BMI 30-39.9) Knee osteoarthritis Vitamin D deficiency Migraine GERD (gastroesophageal reflux disease) Bipolar disorder Asthma Surgical History H/O tubal ligation History of appendectomy History of hysterectomy Hx of endoscopy Family History Father Heart attack Mother Heart attack Lupus Breast cancer Maternal Grandmother Uterine cancer Social History Housing: House Alcohol intake: former Patient Tobacco Use Status: Never used Tobacco Tobacco use type: Cigarette e-Cigarette/Vaping Use: Never Used Second Hand Smoke Exposure: Yes Current occupational status: employed Cognitive needs: No Hearing needs: No Vision needs: No Questionnaire PHQ-9 Over the last 2 weeks, how often have you been bothered by any of the following problems? 1. Little interest or pleasure in doing things: several days 2. Feeling down, depressed, or hopeless: several days 3. Trouble falling or staying asleep, or sleeping too much: nearly every day 4. Feeling tired or having little energy: nearly every day 5. Poor appetite or overeating: nearly every day 6. Feeling bad about yourself - or that you are a failure or have let yourself or your family down: several days 7. Trouble concentrating on things, such as reading the newspaper or watching television: several days 8. Moving or speaking so slowly that other people could have noticed. Or the opposite - being so fidgety or restless that you have been moving around a lot more than usual: not at all 9. Thoughts that you would be better off or of hurting yourself in some way: not at all Total score: 13 Depression Screening Interpretation: Positive Depression Screening Done: Yes Source: Developed by Drs. Esa Castillo, Rukhsana Blanco, Stan Anguiano and colleagues, with an educational zak from [employer]. Thrive Questionnaire Date Thrive assessed: 01/28/25 I am a: Patient What is your living situation today?: I have a steady place to live Within the past 12 months, did the food you bought not last and you didn't have the money to get more?: I choose not to answer this question Within the past 12 months, did you worry whether your food would run out before you got money to buy more?: I choose not to answer this question Do you have trouble paying for medicines?: No Do you have trouble getting transportation to medical appointments?: No Do you have trouble paying your heating and electricity bill?: No Do you have trouble taking care of your child, family member or friend?: No Do you have trouble with day-to-day activities such as bathing, preparing meals, shopping, managing finances, etc.?: No Are you currently unemployed and looking for a job?: No Are you interested in more education?: No Please select the resources that you would like help with: Utilities Currently or been in a relationship where the following occur: I choose not to answer THRIVE Score: 0 AUDIT C Alcohol Use Questionnaire (AUDIT-C) 1. How often do you have a drink containing alcohol?: Never Total Score: 0 ANUPAM-7 AMB Questionnaire ANUPAM-7 Date ANUPAM - 7 assessed: 01/28/25 Feeling nervous, anxious, or on edge: 3 = Nearly every day Not being able to stop or control worryin = Nearly every day Worrying too much about different things: 3 = Nearly every day Trouble relaxin = Nearly every day Being so restless that it is hard to sit still: 2 = More than half the days Becoming easily annoyed or irritable: 3 = Nearly every day Feeling afraid as if something awful might happen: 3 = Nearly every day Total ANUPAM-7 score (0-4 normal; 5-9 mild; 10-14 moderate; 15-21 severe): 20 Source: Developed by Drs. Esa Castillo, Rukhsana Blanco, Stan Anguiano and colleagues, with an educational zak from [employer]. Physical exam (Primary Care) Vital Signs: Last Vital Signs Pulse 78 01/28/25 08:50 BP 114/68 01/28/25 08:50 Pulse Ox 98 01/28/25 08:50 Oxygen Delivery Method Room Air 01/28/25 08:50 BMI result Body Mass Index 24.5 Tobacco/Smoking Status: Tobacco use Status Tobacco use date assessed 01/28/25 01/28/25 08:52 Patient Tobacco Use Status Never used Tobacco 01/28/25 08:52 Tobacco use type Cigarette 01/28/25 08:52 e-Cigarette/Vaping Use Never Used 01/28/25 08:52 PHQ-9: PHQ-9 Score PHQ-9: Total score 13 01/28/25 08:52 Depression Screening Interpretation: Positive Thrive Assessment: Date of Thrive Assessment Date Thrive assessed 01/28/25 01/28/25 08:52 Currently or been in a relationship where the following occur: I choose not to answer Const General: alert; No acute distress Eyes Conjunctivae: conjunctivae normal Resp Auscultation: clear to auscultation bilaterally Cardio Rate: regular rate Rhythm: regular rhythm GI Inspection: Yes normal to inspection Skin Full body images: 1. tender on the lumbar spine to the paralumbar area , Extrem General: Yes normal to inspection and No edema Coding Level of Care Code Est Pt Level 4 (37793) Complex EM visit Add On G2211 Diagnoses Severe persistent asthma J45.50 Vitamin B12 deficiency E53.8 S/P laparoscopic sleeve gastrectomy Z98.84 Gastroesophageal reflux disease without esophagitis K21.9 Esophagitis presence: without esophagitis Bipolar affective disorder, remission status unspecified F31.9 Active/Remission status: remission status unspecified Low back pain M54.50 Assessment & Plan Assessment & Plan (1) Severe persistent asthma: Code(s): J45.50 - Severe persistent asthma, uncomplicated Category: Medical Plan: Continue to follow-up with Pulmonary patient is receiving test prior on Symbicort and Ventolin as well as Zyrtec (2) Vitamin B12 deficiency: Code(s): E53.8 - Deficiency of other specified B group vitamins Category: Medical Plan: Continue with vitamin B12 (3) S/P laparoscopic sleeve gastrectomy: Comment: March [address]23 Dr. Horvath Code(s): Z98.84 - Bariatric surgery status Category: Surgical Plan: Continue to follow-up with bariatric (4) GERD (gastroesophageal reflux disease): Code(s): K21.9 - Gastro-esophageal reflux disease without esophagitis Category: Medical Qualifiers: Esophagitis presence: without esophagitis Qualified Code(s): K21.9 - Gastro-esophageal reflux disease without esophagitis Plan: Avoid the foods that causes that usually spicy foods, tomato products, juices, coffee, soda and foods that your sensitive to. After eating do not lie down, allow 3-4 hours before in lie down. And keep the head of bed above 30 degrees to avoid the acid from going up. (5) Bipolar disorder: Comment: [facility] Code(s): F31.9 - Bipolar disorder, unspecified Category: Medical Qualifiers: Active/Remission status: remission status unspecified Qualified Code(s): F31.9 - Bipolar disorder, unspecified Plan: Continue with counseling and therapy (6) Low back pain: Code(s): M54.50 - Low back pain, unspecified Category: Medical Plan History of Present Illness The patient is a 39-year-old female presenting with left-sided back pain. The pain began two days ago, described as a lingering discomfort along the spine. Alleviating measures include the application of heat, while previous medication, including tizanidine and Aleve, provided insufficient relief. The absence of trauma, despite the distinct pain onset, suggests a possible muscular origin. The patient denies accompanying systemic features such as radiating pain, bowel, or urinary changes. The patient's medical history includes bipolar disorder, asthma, and migraines. Post-surgical history notes a sleeve gastrectomy performed in March 2023 for weight management; follow-up with bariatrics in July was mentioned. Recent laboratory assessments showed mild leukopenia and a deficient vitamin B12 level, with oral supplementation prescribed. A past barium swallow identified a small type 1 hiatal hernia correlating with GERD symptoms. The patient also follows with pulmonology for asthma management, receiving Tezspire, Symbicort, and Ventolin. Health Maintenance - Received all recommended vaccines, including tetanus and pneumonia. - Mammogram status remains unclear, possibly last completed in 2020. - Routine blood work as of July showed mild leukopenia and low B12. 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 - Previously underwent sleeve gastrectomy for weight management. - Recent dietary modifications under medical guidance for GERD management. - Reports adherence to medications, including B12 supplementation. Review of Systems - Musculoskeletal: Reports left-sided back pain. - Gastrointestinal: Denies bowel movement changes or abdominal pain. - Neurological: Reports occasional migraines. - Respiratory: Reports stable asthma control. - General: Denies falls or trauma. Physical Exam - Musculoskeletal- Tenderness noted along the spine on the left side. Results - Barium Swallow: Shows small type 1 hiatal hernia with significant GERD. - Blood Work (July): Mild leukopenia, Vitamin B12 low at 218. Plan I will prescribe a stronger muscle relaxant for the back pain with advice against driving due to potential sedation. Heat application and stretching are recommended, with consideration for physical therapy if symptoms do not resolve. GERD management continues with pantoprazole. Vitamin deficiency will be re-assessed, with ongoing oral supplementation. Regular follow-up with pulmonary and bariatrics is essential for asthma management and post gastrectomy care. Patient was informed and verbally consented to the use of an ambient scribe for clinic note documentation during this visit. Discussion Notes I discussed with the patient the likely musculoskeletal nature of her back pain and the treatment plan, including a different muscle relaxant and continuation of heat and physical exercises. We reviewed the potential sedative effects of the new medication. The patient's asthma treatment remains constant, and her vitamin B12 deficiency will be monitored with further blood work. The possible need for physical therapy and factors influencing therapy were explored. The patient agreed to the plan and is informed about when to return for further evaluation or if symptoms persist or worsen. Patient Instructions - Take the prescribed muscle relaxant; do not drive after taking it. - Apply heat to the affected area and perform recommended stretches. - Continue asthma inhalers and GERD medication as directed. - Monitor symptoms and return if pain persists beyond one week or worsens. - Schedule a follow-up for blood work to reassess Vitamin B12 levels. - Maintain appointments with pulmonary and bariatrics specialists. - Contact the clinic if new symptoms arise. Orders: Orders PT Evaluation and Treatment Today M54.50 - Low back pain, unspecified Comprehensive Met. Panel Today Z98.84 - Bariatric surgery status Free T4 (Free Thyroxine) Today Z98.84 - Bariatric surgery status Vitamin B12 and Folate Today Z.84 - Bariatric surgery status Lipid Panel Today E78.00 - Pure hypercholesterolemia, unspecified, Z98.84 - Bariatric surgery status Complete Blood Count Auto Diff Today Z - Bariatric surgery status Thyroid Stimulating Hormone Today Z98.84 - Bariatric surgery status Vitamin D 25-OH Total Today Z98.84 - Bariatric surgery status Hemoglobin A1c Today Z98.84 - Bariatric surgery status Medications: New tezepelumab-ekko (Tezspire) 210 mg (1.91 mL) subcut Q4W 1.91 mL 0RF cyclobenzaprine 10 mg PO BEDTIME PRN 20 tabs 0RF muscle spasm M54.50 - Low back pain, unspecified meloxicam 15 mg PO DAILY 20 tabs 0RF M54.50 - Low back pain, unspecified Discontinued dupilumab (Dupixent) Discontinued Reason: Patient Completed Course 300 mg (2 mL) subcut Q2W 28 days 4 mL 0RF tizanidine Discontinued Reason: Doctor's Order 4 mg PO BID PRN 60 tabs 0RF for muscle spasm M54.9 - Dorsalgia, unspecified
--- OUTSIDE RECORDS SUMMARY | 2025-01-28 09:13 | XMS_ITS | Clinical Summary ---
Author Organization [address] [place] [address] [place] [id number] Phone Care Team Providers Care Warp Spinner Name Role Phone Tha Arboleda MD Primary Care Provider [phone] Allergies Active Allergy Reactions Criticality Noted Date Comments Ketorolac 06/25/2024 Lamotrigine 06/25/2024 Mushroom Anaphylaxis High 04/12/2023 Nitrofurantoin Rash Low 04/12/2023 Medications budesonide-formote roL (SYMBICORT) 160-4.5 mcg/actuation inhaler Twice A Day Active albuterol HFA (PROAIR HFA ; PROVENTIL HFA ; VENTOLIN HFA) 90 mcg/actuation inhaler Every 4 Hours as needed for Shortness Of Breath/Wheezi ng Active thiamine (VITAMIN B-1) 50 mg tablet Take 1 tablet (50 mg total) by mouth 1 (one) time each day. Active wheat dextrin (BENEFIBER CLEAR SF, DEXTRIN, ORAL) Take 4 g by mouth 1 (one) time each day. Active cyanocobalamin (Vitamin B-12) 1,000 mcg tabletIndications: Postgastrectomy malabsorption Take 1 tablet (1,000 mcg total) by mouth 1 (one) time each day. 30 each 11 4 09/06/20 25 Active vitamin B complex-folic acid 0.4 mg tablet TAKE 1 TABLET BY MOUTH EVERY DAY 90 each 5 Active Active Problems Problem Noted Date Diagnosed Date Overweight (BMI 25.0-29.9) 08/05/2024 Bariatric surgery status 08/05/2024 Class 2 obesity with body ma ss index (BMI) of 39.0 to 39.9 in adult 06/25/2024 Social History Tobacco Use Types Packs/Day Years Used Date Smoking Tobacco: Never Assessed Comments Unknown Sex and Gender Information Value Date Recorded Sex Assigned at Not on file Legal Sex Female 3:57 AM EST Gender Identity Not on file Sexual Orientation Not on file Last Filed Vital Signs Vital Sign Reading Time Taken Comments Blood Pressure 126/77 08/05/2024 8:39 AM EST Pulse 76 08/05/2024 8:39 AM EST Temperature - - Respiratory Rate - - Oxygen Saturation - - Inhaled Oxygen Concentration - - Weight 81.6 kg (180 lb) 08/05/2024 8:39 AM EST Height 175.3 cm (5' 9 ) 08/05/2024 8:39 AM EST Body Mass Index 26.58 08/05/2024 8:39 AM EST Plan of Treatment Upcoming Encounters Date Type Department Care Team (Late st Contact Info) Description 02/03/2025 8:00 AM EDT Office Visit Bariatric Surgery - [place] [facility] [address] [place] [phone] Anali Rehman PA [address] [address] Health Maintenance Due Date Last Done Comments Hepatitis B Vaccines (1 of 3 - 19+ 3-dose series) 2005 Cervical Cancer Screening: Pap Smear 2007 Depression Screening 08/21/2022 HIV Screening 08/21/2022 Hepatitis C Screening 08/21/2022 Social Influencers of Health Screening 08/21/2022 COVID-19 Vaccine ( season) 2024 10/22/2020, 09/24/2020 Cholesterol Screening (Lipid Panel) 09/14/2027 09/14/2022 DTaP,Tdap,and Td Vaccines (2 - Td or Tdap) 08/10/2031 08/10/2021 Pneumococcal Vaccine: Pediatrics (0 to 5 Years) and At-Risk Patients (6 to 64 Years) Aged Out 06/10/2021 No longer eligible based on patient's age to complete this topic Influenza Vaccine Completed 07/31/2024, , 08/10/2021, Additional history exists HIB Vaccines Aged Out No longer eligi ble based on patient's age to complete this topic HPV Vaccines Aged Out No longer eligi ble based on patient's age to complete this topic Hepatitis A Vaccines Aged Out No long er eligible based on patient's age to complete this topic IPV Vaccines Aged Out No longer eligi ble based on patient's age to complete this topic MMR Vaccines Aged Out No longer eligi ble based on patient's age to complete this topic Meningococcal ACWY Vaccine Aged Out N o longer eligible based on patient's age to complete this topic Meningococcal B Vaccine Aged Out No l onger eligible based on patient's age to complete this topic RSV Immunization Patients Under 20 months Aged Out No longer eligible based on patient's age to complete this topic Varicella Vaccines Aged Out No longer eligible based on patient's age to complete this topic Procedures Procedure Name Priority Date/Time Associated Diagnosis Comments LIPID PANEL Routine 09/14/2022 from Last 3 Months or Most Recently Relevant to Health Maintenance Results * Lipid panel (09/14/2022) LDL/HDL Ratio 3 0 - 4 Triglycerides 104 0 - 150 mg/dL Cholesterol 163 0 - 200 mg/dL HDL 53 >=40 mg/dL LDL Cholesterol 90 0 - 100 mg/dL Blood Venous blood specimen / Unknown [facility] Provider LAB BLOOD ORDERABLES Milly l Result from Last 3 Months or Most Recently Relevant to Health Maintenance Insurance MEDICA[place] Care Teams Warp Spinner Relationship Specialty Start Date End Date Tha Arboleda MD [address] [place] [address] Dr [address] [facility] [place] [address] PCP - General Internal Medicine 06/25/24
== END 2025-01-28 09:17 | disposition home or self-care (01) ==
LOC: HO.HMCH 08:49
PROVIDERS: PCP Internal Medicine; Visit Provider Internal Medicine
DX: J45.50 Severe persistent asthma, uncomplicated (principal); F31.9 Bipolar disorder, unspecified; E53.8 Deficiency of other specified B group vitamins; Z98.84 Bariatric surgery status; K21.9 Gastro-esophageal reflux disease without esophagitis; M54.50 Low back pain, unspecified

== ENCOUNTER → 2025-01-28 08:48 | Outpatient (BNVA) | payer OTHER, SELFPAY | PROVIDERS: PCP Internal Medicine; Visit Provider Internal Medicine | DX: J45.50 Severe persistent asthma, uncomplicated (principal); E53.8 Deficiency of other specified B group vitamins; K21.9 Gastro-esophageal reflux disease without esophagitis; F31.9 Bipolar disorder, unspecified; M54.50 Low back pain, unspecified; Z98.84 Bariatric surgery status | CPT/HCPCS: 99212 ==

== ENCOUNTER 2025-02-06 11:51 | Emergency (ER) | payer OTHER, SELFPAY ==
--- NOTE | ~2025-02-06 | CT_ITS ---
EXAMINATION: CT LUMBAR SPINE WITHOUT CONTRAST CLINICAL INFORMATION: Low back pain, history of CA. COMPARISON: MRI lumbar 06/16/2019. TECHNIQUE: Spiral CT imaging of the lumbar spine performed in axial plane without contrast. Multiplanar reformatted images were constructed from the axial data set. This CT examination was performed using dose optimization techniques as appropriate, variously including the following: *Automated exposure control *Adjustment of mA and/or kV according to patient size (this includes techniques or standardized protocols for targeted exams where dose is matched to indication/reason for exam; i.e. extremities or head) *Use of iterative reconstruction technique FINDINGS: There is no scoliosis. There is normal lordosis. There are no subluxations. There is no fracture, compression deformity, or suspicious bone lesion. Disc spaces are largely preserved with only a very mild degenerative disc changes. Facets are normally aligned with mild degenerative facet change most notable on the right at L3-4. There is no definite significant disc herniation, central canal or significant neural foraminal narrowing. The sacrum is intact. Mild degenerative arthritis in both SI joints. The imaged soft tissues demonstrate no abnormalities. There has been prior gastric sleeve surgery. CT/CT lumbar spine wo IV con IMPRESSION: 1. Mild degenerative disc and facet changes of the lumbar spine. No acute findings. 2. No significant or high-grade central canal or neural foraminal narrowing. No large disc herniation appreciated. Electronically signed by: Teddy Kaminski MD 02/06/2025 03:39 PM EDT
--- NOTE | 2025-02-06 12:09 | ED_ITS ---
HPI - General Adult General Chief complaint: Back Pain/Injury Stated complaint: Back pain Time Seen by Provider: 02/06/25 13:17 Source: patient Mode of arrival: ambulatory Limitations: no limitations History of Present Illness ED Provider: Vania Dean PA-C HPI narrative: 39 y.o female with a past medical history of leukemia (AML), gastric sleeve, GERD, and previous episodes of back pain presents to the ED with a chief complaint of severe back pain. Patient reports that the pain started 1 week ago, she has tried taking ibuprofen, flexeril, heat and ice and all modalities have not worked to alleviate the pain. Patient states that movement and laying down make the pain worse. She denies any recent trauma, fall, or straining of her back muscles. Patient also denies urinary changes or saddle numbness. Patient presents with her daughter. Onset (ago): week(s) (1) Location: back (low back + buttocks) Quality: aching and constant Relieving factors: none Exacerbating factors: immobilization and movement Associated symptoms: denies other symptoms Treatments prior to arrival: NSAID, cold therapy, heat therapy and other (muscle relaxer ) Related Data Previous Rx's ?Medication ?Instructions ?Recorded montelukast 10 mg tablet 10 mg PO DAILY 90 days #90 tabs 12/23/21 albuterol sulfate 0.63 mg/3 mL 0.63 mg (3 mL) inhalation QID PRN 05/13/22 solution for nebulization shortness of breath or wheezing 30 days #90 mL triamcinolone acetonide 0.5 % 1 appl topical BID 14 days #45 08/17/22 topical cream grams cholecalciferol (vitamin D3) 50 50 mcg PO DAILY #30 caps 01/27/23 mcg (2,000 unit) capsule (Vitamin D3) thiamine HCl (vitamin B1) 100 mg 100 mg PO DAILY #90 tabs 03/01/24 tablet budesonide-formoterol HFA 160 2 puff PO BID #10.2 ea 04/03/24 mcg-4.5 mcg/actuation aerosol inhaler (Symbicort) pantoprazole 40 mg tablet,delayed 40 mg PO DAILY #60 tabs 05/27/24 release cetirizine 10 mg tablet (Zyrtec) 10 mg PO DAILY PRN allergy 08/21/24 symptoms 90 days #90 tabs albuterol sulfate 90 mcg/actuation 2 puff inhalation Q6H PRN 12/11/24 aerosol inhaler (Ventolin HFA) shortness of breath or wheezing #8.5 grams cyclobenzaprine 10 mg tablet 10 mg PO BEDTIME PRN muscle spasm 01/28/25 #20 tabs meloxicam 15 mg tablet 15 mg PO DAILY #20 tabs 01/28/25 tezepelumab-ekko 210 mg/1.91 mL 210 mg (1.91 mL) subcut Q4W #1.91 01/28/25 (110 mg/mL) subcutaneous pen mL injector (Tezspire) lidocaine 5 % topical ointment 1 appl topical BID PRN pain #50 02/02/25 grams omeprazole 40 mg capsule,delayed 40 mg PO DAILY #7 caps 02/06/25 release prednisone 20 mg tablet 20 mg PO DAILY 7 days #7 tabs 02/06/25 Allergies Allergy/AdvReac Type Severity Reaction Status Date / Time mushroom Allergy Severe ANAPHYLAXIS Verified 02/06/25 12:13 ketorolac [From TORADOL] Allergy Intermediate HALLUCINATI Verified 02/06/25 12:13 ONS nitrofurantoin Allergy Intermediate SWELLING, Verified 02/06/25 12:13 [From MACROBID] ITCHY tramadol Allergy Unknown something Verified 02/06/25 12:13 lamotrigine [Lamictal] AdvReac Unknown aggression Verified 02/06/25 12:13 lamictal Allergy Unknown something Uncoded 02/06/25 12:13 mushrooms Allergy Unknown anaphylaxis Uncoded 02/06/25 12:13 Review of Systems 2 Review of Systems: Yes all other systems are reviewed and are negative Constitutional: Constitutional: Reports no additional constitutional complaints, Denies chills, Denies fever(s) and Denies night sweats Eyes: Eyes: Reports no additional eye complaints, Denies blurry vision, Denies change in vision, Denies diplopia, Denies eye discharge, Denies loss of vision and Denies eye pain ENT: Denies dizziness Cardiovascular: Cardiovascular: Reports no additional cardiovascular complaints, Denies chest pain, Denies lightheadedness, Denies Loss of Consciousness and Denies dyspnea Respiratory: Respiratory: Reports no additional respiratory complaints and Denies dyspnea Gastrointestinal: Gastrointestinal: Reports no additional gastrointestinal complaints, Denies abdominal pain, Denies melena, Denies hematochezia, Denies change in bowel habits and Denies change in stool character Genitourinary: Genitourinary: Denies hematuria, Denies urinary frequency, Denies dysuria, Denies urinary incontinence, Denies urinary hesitancy and Denies urinary urgency Musculoskeletal: Musculoskeletal: Reports no additional musculoskeletal complaints, Reports back pain, Denies numbness, Reports radiating pain into limb (legs til knee) and Denies tingling Neurologic: Denies dizziness, Denies loss of vision, Denies numbness and Denies tingling Psychiatric: Psychiatric: Reports no additional psychiatric complaints Endocrine: Endocrine: Reports no additional endocrine complaints Hematologic/Lymphatic: Hematologic/Lymphatic: Reports no additional hematologic/lymphatic complaints Allergic/Immunologic: Allergic/Immunologic: Reports no additional allergic/immunologic complaints PMFSH Past Medical History Attestation statement: The following information was validated with the patient. (patient's daughter validated all information) Source: old records reviewed, obtained from family (patient's daughter provided additional history and confirmed the history provided by the patient. ) and nursing notes reviewed Medical History Difficulty breathing Shortness of breath Chest tightness Exacerbation of asthma Eczema Bilateral shoulder pain Sinus congestion Shoulder pain, left Nasal congestion Hypersomnia Back pain Hx LEEP (loop electrosurgical excision procedure), cervix, Peripheral neuropathy Obesity (BMI 30-39.9) Knee osteoarthritis Vitamin D deficiency Migraine GERD (gastroesophageal reflux disease) Bipolar disorder Asthma Surgical History H/O tubal ligation History of appendectomy History of hysterectomy Hx of endoscopy Family History Family History Father Heart attack Mother Heart attack Lupus Breast cancer Maternal Grandmother Uterine cancer Social History Social History Housing: House Alcohol intake: former Patient Tobacco Use Status: Never used Tobacco Tobacco use type: Cigarette e-Cigarette/Vaping Use: Never Used Second Hand Smoke Exposure: Yes Current occupational status: employed Cognitive needs: No Hearing needs: No Vision needs: No Physical Exam ED Vital Signs: Vital Signs - 24 hr 02/06/25 12:10 02/06/25 12:57 02/06/25 16:00 Temperature 98.3 F 97.2 F Pulse Rate 88 72 75 Respiratory Rate 18 16 14 Blood Pressure 129/84 114/74 123/71 Pulse Oximetry 100 100 100 Oxygen Delivery Method Room Air Room Air Room Air 02/06/25 16:53 Temperature 97.2 F Pulse Rate 75 Respiratory Rate 14 Blood Pressure 123/71 Pulse Oximetry 100 Oxygen Delivery Method Room Air BMI result Body Mass Index 25.5 Const General: cooperative, no acute distress, alert and awake Nutritional Appearance: well nourished Orientation/consciousness: patient oriented x3 HENMT Head: Yes normal to inspection and Yes atraumatic Ears: hearing grossly normal bilaterally and external ears normal General nose exam: Normal external nose present, no nasal discharge noted and no epistaxis Face and sinus: Yes normal facial exam, No abrasion and No laceration Mouth: Normal oral and palatal mucosa present, no drooling and no muffled voice Eyes General: appearance normal, both eyes and all related structures Periorbital: periorbital findings normal Eyelids: Yes eyelids normal Conjunctivae: conjunctivae normal Pupils: Equal, round and reactive pupils present EOM: EOMs intact bilaterally Neck Neck: Yes normal visual inspection, Yes full ROM and Yes no lymphadenopathy Resp Effort & Inspection: normal respiratory effort and able to speak in complete sentences Neuro General: patient oriented x3, moves all extremities and CN's II-XI intact bilaterally Cranial nerves: Yes Equal, round and reactive pupils present Cognition (Neuro): normal cognition Extrem General: Yes normal to inspection, Yes full ROM and Yes capillary refill normal Psych Appearance: grossly normal Mental Status: mental status grossly normal Affect: normal affect Attitude: cooperative Thought process: Normal thought process present Thought content: Normal thought content present Insight: Good insight present (Psych) Course Course Course Narrative: This is a rapid medical exam performed by Gianna Abdalla NP: Additional HPI, ROS, PE not included below will be deferred to primary provider. Patient is a 39-year-old female presenting with complaint of left lower back pain since Monday. Saw PCP. Last night pain worsened. Feels like back is locked, difficulty sitting/laying. Has tried many OTC medications, PCP prescribed muscle relaxers, nothing is helping. Denies saddle anesthesia, b/b incontinence. No known injury. Plan: Lumbar xray Medications Administered Discontinued Medications Generic Name Dose Route Start Last Admin Trade Name Freq PRN Reason Stop Dose Admin Diazepam 2.5 mg 02/06/25 13:35 02/06/25 14:14 Diazepam 10 Mg/2 Ml Cartridge IVPUSH 02/06/25 13:36 2.5 mg STAT STA Administration Medical Decision Making Medical Decision Making [facility] Narrative: Patient is a 39 year old assigned female at with a history of GERD, bipolar disorder, tension headaches, hearing impairment, and s/p gastric sleeve presenting to the emergency department today with back pain. Patient's physical exam was unremarkable. Patient's blood work was unremarkable. Patient's lumbar CT showed no acute process. I explained my physical exam findings as well as all test results to the patient and the patient's daughter. I answered all questions asked by the patient and the patient's daughter. Patient received valium which, upon re-evaluation, she stated it helped her symptoms significantly. I stressed the importance of the patient taking her medication as directed (either prescribed or as the over the counter packaging recommends). I stressed the importance of the patient following up with her primary care provider. I stressed the importance of the patient returning to the emergency department immediately if her symptoms were to worsen or if she were to develop any dizziness, shortness of breath, difficulty breathing, chest pain, blurry vision, loss of vision, nausea, vomiting, abdominal pain, fever, chills, back pain, or any other complaints. Patient and the patient's daughter verbalized agreement and understanding with this treatment plan and discharge. Note: Had an extensive discussion with the patient about prednisone use s/p gastric sleeve and she stated she was OK with doing that because she has been taking ibuprofen for years after her gastric sleeve and has been fine . Differential Diagnosis Differential Diagnoses: The differential diagnosis associated with the presentation includes Back pain Muscle spasm Admission/Observation Consideration of admission/observation: Escalation of care including admission/observation considered Patient would have been admitted to the hospital had her work up had any findings where hospital admission was appropriate and her clinical presentation warranted hospital admission. Lab Data [facility] Lab Attestation statement: I reviewed the patient's lab results. My interpretation of these results are in the [facility] Rationale portion of this note. 02/06/25 14:07 02/06/25 14:07 Labs: Lab Results 02/06/25 Range/Units 14:07 WBC 5.4 (4.8-10.8) X10*3/uL RBC 4.11 L (4.20-5.50) X10*6/uL Hgb 11.6 L (12.0-16.0) g/dl Hct 34.9 L (37.0-47.0) % MCV 84.9 (80.0-98.0) fL MCH 28.2 (27.0-33.0) pg MCHC 33.2 (31.0-35.0) g/dl RDW 12.6 (11.0-16.0) % Plt Count 336 (160-400) X10*3/uL MPV 9.2 L (9.4-12.3) fL Immature Gran % (Auto) 0.4 (0.0-0.4) % Neut % (Auto) 49.9 (45-73) % Lymph % (Auto) 39.7 (20-40) % Bollinger % (Auto) 8.5 (2-11) % Eos % (Auto) 0.9 (0-4) % Baso % (Auto) 0.6 (0-2) % Lymph # (Auto) 2.2 (1.2-4.9) X10*3/uL Bollinger # (Auto) 0.5 (0.1-1.2) X10*3/uL Eos # (Auto) 0.1 (0.0-0.4) X10*3/uL Baso # (Auto) 0.0 (0.0-0.2) X10*3/uL Abs Immat Gran (auto) 0.02 (0.00-0.03) X10*3/uL Absolute Neuts (auto) 2.7 (2.0-8.3) x10*3/uL Absolute Nucleated RBC 0.000 (0.0-0.012) X10*3/uL Nucleated RBC % (auto) 0.0 (0.0-0.2) /100WBC Sodium 141 (135-145) mmol/L Potassium 3.5 (3.3-5.1) mmol/L Chloride 111 H (96-108) mmol/L Carbon Dioxide 26 (22-29) mmol/L Anion Gap 8 L (12-20) BUN 9 (9-16) mg/dL Creatinine 0.67 (0.5-1.4) mg/dL Estim Creat Clear Calc 118.9 Estimated GFR > 60 Random Glucose 103 (60-115) mg/dL Calcium 8.9 (8.4-10.2) mg/dL Total Bilirubin 0.2 (0.0-1.0) mg/dL AST 20 (5-31) U/L ALT 24 (0-31) U/L Alkaline Phosphatase 71 (39-117) U/L Total Protein 6.5 (6.5-8.0) g/dL Albumin 3.9 (3.5-5.0) g/dL Independent Interpretation I performed an independent interpretation of an: CT Scan (lumbar) Interpretation: My interpretation is in agreement with the radiologist's impression of this imaging study. L Report Number: [id number]: Total DLP = 343.00 mGy-cm EXAMINATION: CT LUMBAR SPINE WITHOUT CONTRAST CLINICAL INFORMATION: Low back pain, history of CA. COMPARISON: MRI lumbar 06/16/2019. TECHNIQUE: Spiral CT imaging of the lumbar spine performed in axial plane without contrast. Multiplanar reformatted images were constructed from the axial data set. This CT examination was performed using dose optimization techniques as appropriate, variously including the following: *Automated exposure control *Adjustment of mA and/or kV according to patient size (this includes techniques or standardized protocols for targeted exams where dose is matched to indication/reason for exam; i.e. extremities or head) *Use of iterative reconstruction technique FINDINGS: There is no scoliosis. There is normal lordosis. There are no subluxations. There is no fracture, compression deformity, or suspicious bone lesion. Disc spaces are largely preserved with only a very mild degenerative disc changes. Facets are normally aligned with mild degenerative facet change most notable on the right at L3-4. There is no definite significant disc herniation, central canal or significant neural foraminal narrowing. The sacrum is intact. Mild degenerative arthritis in both SI joints. The imaged soft tissues demonstrate no abnormalities. There has been prior gastric sleeve surgery. CT/CT lumbar spine wo IV con IMPRESSION: 1. Mild degenerative disc and facet changes of the lumbar spine. No acute findings. 2. No significant or high-grade central canal or neural foraminal narrowing. No large disc herniation appreciated. Electronically signed by: Teddy Kaminski MD 02/06/2025 03:39 PM EDT Dictated By: Teddy Kaminski MD Signed By: Electronically signed by Teddy Kaminski MD 02/06/25 1539 Radiology Impression Discussion of test interpretation with radiology: I have reviewed the radiologist's reading. Independent Historian Clinical information obtained from an independent historian. History obtained from or confirmed by: Other (patient's daughter provided additional history and confirmed the history provided by the patient. ) Discharge Plan Discharge Clinical Impression: Back pain Patient Disposition: Home, Self-Care Instructions: Back Pain (ED) Additional Instructions: Your work up today was reassuring there is no emergent process to explain your symptoms. Follow up with your primary care provider and a spinal specialist. Return to the emergency department immediately if your symptoms worsen or if you develop any numbness, tingling, dizziness, shortness of breath, difficulty breathing, chest pain, blurry vision, loss of vision, nausea, vomiting, abdominal pain, fever, chills, back pain, or any other complaints. Please see the information below about our Patient Portal. If you are not yet enrolled in the [facility] Patient Portal, you will receive an enrollment email invitation following your visit to any [facility] setting. You may also self-enroll in the Patient Portal by visiting our website: [email or web address] The following information is required to access the Patient Portal: - Your [facility] Medical Record Number - Your personal home email address (must match what is in your electronic medical record, Registration staff can assist with this) - Name - Date of Capabilities of the Patient Portal: - Message some providers - View upcoming appointments - Access your health summary, medical history, and visit history - View current conditions and allergies - View procedure and lab results - View your medications, including guidelines, side effects, and precautions - Complete pre-appointment questionnaires requested by your provider - Ready summary reports of your office visits and procedures To access the Patient Portal Mobile Lilian, follow these directions: - Search Memoir in the Lilian Store or Google Play Store - Download the Lilian - Search for [facility] - Enter your login/password Prescriptions: New prednisone 20 mg tablet 20 mg PO DAILY 7 Days Qty: 7 0RF omeprazole 40 mg capsule,delayed release(DR/EC) 40 mg PO DAILY Qty: 7 0RF No Action triamcinolone acetonide 0.5 % cream 1 appl topical BID 14 Days Qty: 45 0RF cholecalciferol (vitamin D3) [Vitamin D3] 50 mcg (2,000 unit) capsule 50 mcg PO DAILY Qty: 30 12RF thiamine HCl (vitamin B1) 100 mg tablet 100 mg PO DAILY Qty: 90 1RF budesonide-formoterol [Symbicort] 160-4.5 mcg/actuation HFA aerosol inhaler 2 puff PO BID Qty: 10.2 6RF pantoprazole 40 mg tablet,delayed release (DR/EC) 40 mg PO DAILY Qty: 60 3RF cetirizine [Zyrtec] 10 mg tablet 10 mg PO DAILY PRN (Reason: allergy symptoms) 90 Days Qty: 90 3RF albuterol sulfate [Ventolin HFA] 90 mcg/actuation HFA aerosol inhaler 2 puff inhalation Q6H PRN (Reason: shortness of breath or wheezing) Qty: 8.5 0RF lidocaine 5 % ointment 1 appl topical BID PRN (Reason: pain) Qty: 50 0RF albuterol sulfate 0.63 mg/3 mL solution for nebulization 0.63 mg inhalation QID PRN (Reason: shortness of breath or wheezing) 30 Days Qty: 90 0RF montelukast 10 mg tablet 10 mg PO DAILY 90 Days Qty: 90 3RF Tezspire 210 mg/1.91 mL (110 mg/mL) pen injector 210 mg subcut Q4W Qty: 1.91 0RF cyclobenzaprine 10 mg tablet 10 mg PO BEDTIME PRN (Reason: muscle spasm) Qty: 20 0RF meloxicam 15 mg tablet 15 mg PO DAILY Qty: 20 0RF Referrals: [facility] [Provider Group] (Call to establish and follow up with a hearing aid specialist. ) [facility] [Provider Group] (Call to establish and follow up with a hearing aid specialist. ) Po,Lorenver O, MD [Primary Care Provider] - Stand Alone Forms: Work/School Release Interventions: ED Discharge Assessment Last Done: 02/06/25 16:53 Discharge Date/Time: 02/06/25 16:55 Print Language: Gabonese
[2025-02-06 12:10] VITALS: BP 129/84; PULSE 88; RESP 18; TEMP 36.8; O2SAT 100; BMI 25.5
[2025-02-06 12:57] VITALS: BP 114/74; PULSE 72; RESP 16; O2SAT 100
--- OUTSIDE RECORDS SUMMARY | 2025-02-06 13:44 | XMS_ITS | Clinical Summary ---
Author Organization [address] [facility] Address [address] [place] [address] Phone Care Team Providers Care General Practitioner Name Role Phone Tha Arboleda MD Primary Care Provider [phone] Allergies Active Allergy Reactions Criticality Noted Date [...] 1 (one) time each day. 30 each 4 09/06/20 25 Active vitamin B complex-folic [...] 08/05/2024 8:39 AM EST Plan of Treatment Health Maintenance Due Date Last Done Comments [...] mg/dL Blood Venous blood specimen / Unknown [facility] Provider LAB BLOOD ORDERABLES Milly l Result from Last 3 Months or Most Recently Relevant to Health Maintenance Insurance [place]ICA[place] - [place] [facility] Care Teams General Practitioner Relationship Specialty Start Date End Date Tha Arboleda MD [address] [place] [address] [address] [facility] [place] [address] PCP - General Internal Medicine 06/25/24
[2025-02-06 14:12] LABS: MANUAL DIFF FLAG NO
[2025-02-06] MEDS: diazePAM 10 MG/2 ML CARTRIDGE 2.5 MG IVPUSH (14:14)
[2025-02-06 14:17] LABS: Basophils Percent Auto 0.6 % (0-2); Eosinophils Absolute Auto 0.1 X10*3/uL (0.0-0.4); Eosinophils Percent Auto 0.9 % (0-4); Hematocrit 34.9 % (37.0-47.0); Hemoglobin 11.6 g/dl (12.0-16.0); Imm Gran Abs Auto 0.02 X10*3/uL (0.00-0.03); Imm Gran Pct Auto 0.4 % (0.0-0.4); Lymphocytes Absolute Auto 2.2 X10*3/uL (1.2-4.9); Lymphocytes Percent Auto 39.7 % (20-40); Mean Corpuscular HGB Conc 33.2 g/dl (31.0-35.0); Mean Corpuscular Hemoglobin 28.2 pg (27.0-33.0); Mean Corpuscular Volume 84.9 fL (80.0-98.0); Mean Platelet Volume 9.2 fL (9.4-12.3); Monocytes Absolute Auto 0.5 X10*3/uL (0.1-1.2); Monocytes Percent Auto 8.5 % (2-11); Neutrophils Absolute Auto 2.7 x10*3/uL (2.0-8.3); Neutrophils Percent Auto 49.9 % (45-73); Platelet Count 336 X10*3/uL (160-400); Red Blood Count 4.11 X10*6/uL (4.20-5.50); Red Cell Distribution Width 12.6 % (11.0-16.0); White Blood Count 5.4 X10*3/uL (4.8-10.8)
[2025-02-06 14:29] LABS: Alanine Aminotransferase 24 U/L (0-31); Albumin Level 3.9 g/dL (3.5-5.0); Alkaline Phosphatase 71 U/L (39-117); Anion Gap 8 (12-20); Aspartate Amino Transferase 20 U/L (5-31); Bilirubin Total 0.2 mg/dL (0.0-1.0); Blood Urea Nitrogen 9 mg/dL (9-16); Calcium 8.9 mg/dL (8.4-10.2); Carbon Dioxide 26 mmol/L (22-29); Chloride 111 mmol/L (96-108); Creatinine Clr Calc Pharmacy 118.9; Estimated Glomerular Filt Rate > 60; Glucose Random 103 mg/dL (60-115); Potassium 3.5 mmol/L (3.3-5.1); Sodium 141 mmol/L (135-145); Total Protein 6.5 g/dL (6.5-8.0)
--- NOTE | 2025-02-06 14:55 | PC.NURSE ---
Patient presents with mid back pain, was see for PCP on 01/28 for similar pain. Lungs clear bilat. Respirations even and non-labored. Abdomen soft. non-tender with positive bowel sounds. No LE edema noted. The patient's medical history includes bipolar disorder, asthma, and migraines. Post-surgical history notes a sleeve gastrectomy performed in March 2023 for weight management; follow-up with bariatrics in July was mentioned. Recent laboratory assessments showed mild leukopenia and a deficient vitamin B12 level, with oral supplementation prescribed. A past barium swallow identified a small type 1 hiatal hernia correlating with GERD symptoms. The patient also follows with pulmonology for asthma management, receiving Tezspire, Symbicort, and Ventolin.
[2025-02-06 16:00] VITALS: BP 123/71; PULSE 75; RESP 14; TEMP 36.2; O2SAT 100
[2025-02-06 16:53] VITALS: BP 123/71; PULSE 75; RESP 14; TEMP 36.2; O2SAT 100
== END 2025-02-06 16:55 | disposition home or self-care (01) ==
PROVIDERS: Physician Assistant Medical; Emergency Provider Emergency Medicine; PCP Internal Medicine
DX: M54.50 Low back pain, unspecified (principal)
CPT/HCPCS: 36415; 72131; 80053; 85025; 96374; 99284; J3360

== ENCOUNTER → 2025-02-06 13:35 | Outpatient (BNV) | payer OTHER, SELFPAY | PROVIDERS: PCP Internal Medicine; Visit Provider Radiology Diagnostic Radiology | DX: M54.50 Low back pain, unspecified (principal) | CPT/HCPCS: 72131 ==